=== PATIENT | female | born 1955 | race Caucasian/White ===

== ENCOUNTER 2019-10-21 21:05 | Inpatient (IN) | payer BC, SELFPAY ==
--- NOTE | ~2019-10-21 | XR_ITS ---
EXAMINATION: XR chest 2V DATE: 10/22/2019 15:55 INDICATION: Pneumonia. Hypoxia. TECHNIQUE: PA and lateral views of the chest were obtained. COMPARISON: Chest radiograph dated 10/21/2019 FINDINGS: Persistent consolidation in the posterior segment of the right upper lobe consistent with pneumonia. Unchanged bandlike discoid atelectasis in the left midlung zone. Resolution of the prior increased in terstitial opacities at the bilateral lower lung zones which likely represent mild pulmonary edema. N ew small left pleural effusion with mild left basilar atelectasis versus less likely pneumonia. No pn eumothorax. The cardiomediastinal silhouette is normal. Mild thoracic spondylosis. IMPRESSION: 1. Right upper lobe pneumonia. 2. Small left pleural effusion with associated left basilar atelectasis versus less likely pneumonia. Reviewed, dictated and finalized at location A.
--- NOTE | ~2019-10-21 | XR_ITS ---
EXAMINATION: XR chest 1V portable DATE: 10/21/2019 21:59 INDICATION: Shortness of breath. TECHNIQUE: frontal view of the chest was obtained. COMPARISON: Chest radiograph dated 05/20/2011 FINDINGS: Airspace opacities in the right upper lobe without significant volume loss which is concerning for pn eumonia. Linear discoid atelectasis in the left midlung zone. Mild streaky opacities at the left lung base could represent additional atelectasis or pneumonia. No pleural effusion or pneumothorax. The c ardiomediastinal silhouette is normal. Visualized bones and soft tissues are unremarkable. IMPRESSION: 1. Right upper lobe opacities consistent with pneumonia. 2. Mild left basilar opacities, equivocal for atelectasis versus additional pneumonia. Reviewed, dictated and finalized at location A. IMPRESSION: 1. Right upper lobe opacities consistent with pneumonia. 2. Mild left basilar opacities, equivocal for atelectasis versus additional pne umonia.
--- NOTE | 2019-10-21 21:12 | ECG_ITS ---
Measurements Intervals [place] Rate: 102 P: 71 UT: 144 QRS: -17 QRSD: 79 T: 53 QT: 261 QTc: 341 Interpretive Statements SINUS TACHYCARDIA DELAYED PRECORDIAL R/S TRANSITION NONSPECIFIC T-WAVE ABNORMALITY- INFERIOR LEADS BASELINE ARTIFACT- I, II, III, AVR, AVL, AVF, V1-V6 ABNORMAL ECG Electronically Signed On 10-22-2019 6:58:10 CDT by Azeem Lang D.O.
--- NOTE | 2019-10-21 21:12 | ED.SOB ---
HPI - SOB/Dyspnea General Chief Complaint: Shortness of Breath/Dyspnea Stated Complaint: sob, fever cough Time Seen by Provider: 10/21/19 21:12 Source: patient and EMS Mode of arrival: EMS Limitations: no limitations History of Present Illness HPI Narrative: Patient is a 64-year-old female who presents for evaluation of myalgias, fever and shortness of breath. Patient reports onset of symptoms that began today and have worsened throughout the day. She reports myalgias, dyspnea and difficulty breathing. Patient denies any chest pain, abdominal pain, nausea or vomiting. No recent rhinorrhea or sore throat. Patient reports she travels intermittently to visit family in [place], occasionally will stop at rest stops, otherwise denies any other travel. No recent sick contacts. No recent sick COVID patients that the patient has been around to her knowledge. Patient has a history of COPD, states this feels different than her typical COPD exacerbations. Related Data Allergies Allergy/AdvReac Type Severity Reaction Status Date / Time Contrast Media Allergy Unknown RASH TO CT Uncoded 04/09/12 14:55 SCAN DYE UNKNOWN ANTIBIOTIC Allergy Uncoded 04/08/12 19:26 Review of Systems Review of Systems: Narrative: CONSTITUTIONAL: Reports fever and chills EYES: Denies visual changes, redness, or discharge. ENT: Denies rhinorrhea, congestion, sore throat, or otalgia. CARDIOVASCULAR: Denies chest pain, palpitations, or edema. RESPIRATORY: Reports cough and shortness of breath GASTROINTESTINAL: Denies abdominal pain, nausea, vomiting, or diarrhea. GENITOURINARY: Denies dysuria or hematuria. SKIN: Denies rash or itching. MUSCULOSKELETAL: Denies back pain, joint pain, reports myalgias NEUROLOGIC: Denies headache, numbness, or weakness. FORMERLY [facility] Past Medical History Medical History (Updated 10/21/19 @ 23:03 by Madelaine Byrne MD) Appendicitis COPD (chronic obstructive pulmonary disease) Surgical History Surgical History (Updated 10/21/19 @ 21:33 by Madelaine Byrne MD) History of appendectomy Previous section Family History Family History (Updated 12/03/15 @ 23:19 by DOCTOR UNKNOWN) Father Family history of malignant neoplasm Mother Family history of diabetes mellitus in first degree relative Family history of coronary artery disease Family history of malignant neoplasm of breast in first degree relative Social History Social History (Updated 10/21/19 @ 21:33 by Madelaine Byrne MD) Smoking status: Current every day smoker Tobacco type: cigarettes Alcohol intake: never Substance use: never Gender identity (if verbalized by the patient): Female Exam Narrative: Exam Narrative: GENERAL: Awake, alert, conversant, ill-appearing HEAD: Normocephalic, atraumatic. EYES: PERRLA and EOMI. ENT: Nares clear, no rhinorrhea or epistaxis. Mucous membranes dry NECK: Supple. CHEST: Tachypnea, borderline hypoxemia, mild use of abdominal accessory muscles to breathe, moderate respiratory distress, mild expiratory wheezing bilaterally HEART: Tachycardic rate, sinus rhythm ABDOMEN:Non distended, non tender EXTREMITIES: Normal range of motion. No edema. SKIN: Warm, dry, no rash. NEURO:No focal deficits. Alert and oriented x3 Course Vital Signs Vital signs: Vital Signs Temperature 38.7 C H 10/21/19 21:14 Pulse Rate 106 H 10/21/19 21:14 Respiratory Rate 25 H 10/21/19 21:14 Blood Pressure 113/73 10/21/19 21:14 Pulse Oximetry 91 10/21/19 21:14 Temperature 37.7 C H 10/21/19 22:38 Pulse Rate 100 10/21/19 22:38 Respiratory Rate 22 H 10/21/19 22:38 Blood Pressure 119/77 10/21/19 22:38 Pulse Oximetry 94 10/21/19 22:38 MDM - SOB/Dyspnea MDM Narrative Medical decision making narrative: Patient presented for evaluation of myalgias, found to have fever, tachycardia, also reporting shortness of breath. Patient does not appear to be in full on COPD exacerbation, moderate respiratory distr
[2019-10-21 21:14] VITALS: BP 113/73; PULSE 106; RESP 25; TEMP 38.7; O2SAT 91
--- NOTE | 2019-10-21 21:20 | PC.NURSE ---
pt placed on 2 L o2 at this time.
[2019-10-21] MEDS: SODIUM CHLORIDE 0.9% IV 1,000 ML 999 ML IV CONT ×2 (21:24→22:38)
[2019-10-21 21:30] VITALS: O2SAT 94
[2019-10-21 21:30] LABS: Basophils Absolute Auto 0.1 K/mm3 (0.0-0.1); Basophils Percent Auto 0.4 % (0.2-1.2); Hemoglobin 14.7 g/dL (12.0-15.0); Immature Granulocyte Absolute 0.14 K/mm3 (0.00-0.031); Immature Granulocyte Percent A 0.9 % (0-0.5); Mean Corpuscular HGB Conc 32.7 g/dl (32-36); Mean Corpuscular Hemoglobin 32.8 pg (26-34); Mean Corpuscular Volume 100.4 fl (80-100); Mean Platelet Volume 9.8 fl (7.4-10.4); Monocytes Absolute Auto 0.8 K/mm3 (0.1-0.6); Monocytes Percent Auto 5.2 % (2.6-8.5); Neutrophils Absolute Auto 13.8 K/mm3 (1.3-6.7); Neutrophils Percent Auto 85.5 % (45.5-73.1); Platelet Count Result 200 k/mm3 (150-375); Red Blood Count 4.48 M/mm3 (4.2-5.4); Red Cell Distribution Width 14.1 % (11.5-14.5); White Blood Count 16.2 K/mm3 (4.5-10.0)
[2019-10-21 21:42] LABS: Prothrombin Time 12.8 Seconds (11.1-14.7)
[2019-10-21 21:43] LABS: Partial Thromboplastin Time 25.5 SECONDS (22.3-36.8)
[2019-10-21 21:45] LABS: Alveolar/Arterial O2 Gradient 57.6 mmHg; Base Excess ABG 0.7 mEq/l (+/-2.0); Fractional Inspired Oxygen 21 %; HCO3 ABG 24.5 mEq/l (22.0-26.0); Oxyhemoglobin 84.8 % THb (90.0-100.0); PCO2 ABG 36.7 mmHg (35.0-45.0); Total Hemoglobin 14.3 g/dL (12.0-18.0); pH ABG 7.442 (7.350-7.450)
[2019-10-21 21:45] LABS: Lactic Acid Reflex 3.7 mmol/L (0.7-2.1)
[2019-10-21 21:47] LABS: Oxygen Saturation ABG 85.7 % (95.0-100.0); PO2 ABG 48.2 mmHg (80.0-100.0); Site Drawn RIGHT RADIAL
[2019-10-21 21:47] LABS: Albumin Level 4.2 g/dL (3.5-5.1); Alkaline Phosphatase 71 U/L (38-126); Aspartate Amino Transferase 32 U/L (14-36); Bilirubin,Total 1.4 mg/dL (0.2-1.3); Blood Urea Nitrogen 14 mg/dL (7-17); Calcium 8.5 mg/dL (8.4-10.2); Carbon Dioxide 24 mmol/L (22-30); Chloride 100 mmol/L (98-107); Estimated Glomerular Filt Rate > 60; Glucose 124 mg/dL (65-105); Lactate Dehydrogenase 366 U/L (313-618); Potassium 3.6 mmol/L (3.4-5.0); Sodium 133 mmol/L (137-145)
[2019-10-21 21:48] VITALS: BP 135/83; PULSE 104; RESP 33; O2SAT 92
[2019-10-21 21:48] LABS: Device ROOM AIR; Modified Allen's Test Pass
--- NOTE | 2019-10-21 21:55 | PC.NURSE ---
unable to find med list in patients purse at this time. pt unable to recall medications that she takes daily.
[2019-10-21 21:56] LABS: NT Pro B Type Natriuretic Pept 913 PG/ML (5-100); Troponin I < 0.012 ng/mL (0.000-0.034)
[2019-10-21] MEDS: ALBUTEROL SULFATE (*SP) INHALER 1 PUFF (21:59)
[2019-10-21 22:10] LABS: Alanine Aminotransferase 24 U/L (4-35)
[2019-10-21] MEDS: MAGNESIUM SULF 2 GM/WATER 50ML 2 GM/50 ML BAG IVPB (22:32)
[2019-10-21 22:38] VITALS: BP 119/77; PULSE 100; RESP 22; TEMP 37.7; O2SAT 94
[2019-10-21 23:51] VITALS: BP 110/74; PULSE 101; RESP 20; TEMP 37.6; O2SAT 97
[2019-10-22] VITALS (11 sets, daily range): BP systolic 90–109; BP diastolic 55–80; PULSE 85–99; RESP 16–26; TEMP 36.6–37.8; O2SAT 90–99; BMI 18.6
[2019-10-22 00:28] LABS: Reflex Lactic Acid Yes or No Add Lactic
[2019-10-22 01:03] LABS: Lactic Acid 3.5 mmol/L (0.7-2.1)
[2019-10-22] MEDS: ACETAMINOPHEN 325 MG TABLET 650 MG PO (01:21)
--- NOTE | 2019-10-22 05:14 | PM.IMHP ---
H&P: HPI History of Present Illness Chief complaint: Short of breath, fever, cough Narrative: Date and time of patient contact: 10/22/2019 Anirudh Daugherty is a 64 year old female with a past medical history of COPD and continued tobacco use who presented to the ER with 1 day of fever cough and shortness of breath. Her symptoms have been accompanied by myalgias. She reported that her daughter made her come into the hospital because she had slept ?too much? on the . she denies any chest pain, orthopnea or lower extremity swelling. She has been traveling to visit family in [place]. She denies any recent ill contacts or known COVID-19 exposure. She reports that she currently feels worse than her usual COPD exacerbation. She is having some pleuritic chest pain. She reports that the pain is moderate in nature when it occurs. She reports feeling better now than she did when she came into the ER. She does not usually use oxygen at home but has had some hypoxia requiring oxygen administration. She denies any nausea or vomiting. She reports that her cough is productive but she has not looked at the color of her sputum. She reports that her weight has been stable. Her appetite has been decreased for the last 24 hours. She reports occasional urinary incontinence with coughing but denies any dysuria or hematuria. She has been having normal bowel movements hematochezia or melena. Review of Systems Review of Systems: Narrative: 12 systems were reviewed with pertinent positives and negatives per HPI. Except as documented in the HPI, all other systems were reviewed and are negative. FORMERLY [facility] Past Medical History Medical History (Updated 10/22/19 @ 05:29 by Padma Mckeon DO) COPD (chronic obstructive pulmonary disease) Gastric ulcer Osteoporosis Surgical History Surgical History (Updated 10/22/19 @ 07:21 by Padma Mckeon DO) History of appendectomy Open procedure due to ruptured appendix April 2012 History of carpal tunnel surgery of right wrist History of oophorectomy, unilateral Right oophorectomy due to dermoid cyst performed at the same time as the patient's open appendectomy April 2012 Previous section Family History Family History Father Diabetes mellitus Cancer Mother Breast cancer Diabetes mellitus Heart disease Sibling Legally blind Diabetes mellitus Sibling Diabetes mellitus Social History Social History (Updated 10/22/19 @ 07:24 by Padma Mckeon, DO) Social History: The patient has smoked up to 3 packs of cigarettes per day for 55 years. She started smoking when she was 9 years old. She has cut down to 1 pack of cigarettes per day for the last 1.5 years. She rarely drinks alcohol and only in moderation. She denies any illicit substance use. 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 She lives with her daughter and her daughter's boyfriend. Code status: Full code Smoking packs per day: 1 Smoking cigarettes per day: 20.0 Years smoked: 55 Smoking pack-years: 55.00 Smoking status: Current every day smoker Tobacco type: cigarettes Alcohol intake: never Substance use: never Gender identity (if verbalized by the patient): Female Spiritual care concerns: No Meds Home Medications and Allergies Home Medications Medication Instructions Recorded Confirmed Type albuterol sulfate 2 puff INHALATION QID PRN 10/22/19 10/22/19 History alendronate [Fosamax] 70 mg PO WEEKLY 10/22/19 10/22/19 History fluticasone propion-salmeterol 1 inh INHALATION Q12H 10/22/19 10/22/19 History [Advair Diskus] Allergies Allergy/AdvReac Type Severity Reaction Status Date / Time Contrast Media Allergy Unknown RASH TO CT Uncoded 04/09/12 14:55 SCAN DYE UNKNOWN ANTIBIOTIC Allergy Uncoded 04/08/12 19:26 Vital Signs Vital Signs - 24 hr 10/21/19 21:14 10/21/19 21:30 10/21/19 21:48 Tem
[2019-10-22 06:38] LABS: Hematocrit 40.4 % (37.0-47.0); Hemoglobin 13.2 g/dL (12.0-15.0); Mean Corpuscular HGB Conc 32.7 g/dl (32-36); Mean Corpuscular Hemoglobin 32.8 pg (26-34); Mean Corpuscular Volume 100.2 fl (80-100); Mean Platelet Volume 9.7 fl (7.4-10.4); Platelet Count Result 190 k/mm3 (150-375); Red Blood Count 4.03 M/mm3 (4.2-5.4); Red Cell Distribution Width 14.2 % (11.5-14.5)
[2019-10-22 06:49] LABS: Blood Urea Nitrogen 13 mg/dL (7-17); Carbon Dioxide 23 mmol/L (22-30); Chloride 104 mmol/L (98-107); Estimated CRCL calculation 84 ml/min; Estimated Glomerular Filt Rate > 60; Glucose 119 mg/dL (65-105); Potassium 3.3 mmol/L (3.4-5.0); Sodium 132 mmol/L (137-145)
[2019-10-22 07:12] LABS: Band Neutrophils Percent 9 % (0-6); Lymphocytes Absolute Manual 2.52 K/mm3 (1.1-4.5); Monocytes Absolute Manual 0.28 K/mm3 (0.1-0.90); Monocytes Percent Manual 2 % (3-9); Neutrophils Percent Manual 71 % (46-73); Platelet Estimate Adequate (Adequate); Total Cells Counted 100
[2019-10-22] MEDS: POTASSIUM CHLORIDE 20 MEQ TABLET 40 MEQ PO (07:41)
[2019-10-22] MEDS: SODIUM CHLORIDE 0.9% IV 1,000 ML 999 ML IV CONT (07:42)
[2019-10-22] MEDS: ENOXAPARIN 40 MG/0.4 ML SYRINGE SUB-Q (07:42)
[2019-10-22 08:09] LABS: Add Urine Microscopic? YES; Appearance Urine Clear (Clear); Bacteria Urine Trace /hpf; Bilirubin Urine Negative (Negative); Blood Urine 1+ (Negative); Color Urine Yellow (Yellow); Glucose Urine UA Negative (Negative); Ketones Urine Negative (Negative); Leukocyte Esterase Ur Negative LEU/UL (Negative); Nitrate Urine Negative (Negative); Protein Urine Negative (Negative); RBC Urine 0-2 /hpf (0-2); Specific Grav Ur 1.014 (1.001-1.035); Squamous Epithelial Cell Urine Few /hpf (Few); Urobilinogen Urine Negative mg/dL (<2.0); WBC Urine 0-3 /hpf
[2019-10-22] MEDS: FLUTICASONE/SALMETEROL 115-21 MCG INHALER 1 PUFF INHALATION ×2 (08:57→19:45)
[2019-10-22] MEDS: ALBUTEROL SULFATE (*SP) AEROSOL 1 PUFF 6 PUFF INHALATION ×4 (08:57→19:45)
[2019-10-22 09:02] LABS: Lactic Acid 1.7 mmol/L (0.7-2.1)
[2019-10-22] MEDS: IBUPROFEN 400 MG TABLET PO ×2 (12:19→17:55)
[2019-10-22 13:04] LABS: SARS-CoV-2 RNA PCR Negative
--- NOTE | 2019-10-22 13:16 | PC.NURSE ---
Notified Eliazar BROWN of patient negative COVID. No new orders were obtained.
--- NOTE | 2019-10-22 15:39 | PM.IMPN ---
Progress Note: A&P Assessment and Plan (1) Severe sepsis: Code(s): A41.9 - Sepsis, unspecified organism; R65.20 - Severe sepsis without septic shock Status: Acute Assessment and Plan: With fever, tachycardia, tachypnea, and leukocytosis with lactic acidosis (resolved with IVF). PNA likely source; bacterial vs viral. Blood cultures are pending. The patient received appropriate fluid resuscitation in the ER. BP is still low, but possibly where patient normally runs Continue empiric antibiotic therapy with Rocephin and azithromycin. Monitor BP with low pressures during stay thus far Encouraged PO intake Monitor improvement (2) Community acquired pneumonia: Qualifiers: Laterality: right Lung location: middle lobe of lung Qualified Code(s): J18.9 - Pneumonia, unspecified organism Code(s): J18.9 - Pneumonia, unspecified organism Status: Acute Assessment and Plan: As evident on CXR and history/exam, leukocytosis, VS. Bacterial vs viral; covid testing negative Continue empiric antibiotic therapy with Rocephin and azithromycin. Will test for urine Legionella, mycoplasma and pneumococcal antigen. Sputum cultures to be collected Monitor (3) Acute respiratory failure with hypoxia: Code(s): J96.01 - Acute respiratory failure with hypoxia Status: Acute Assessment and Plan: Requiring 3L O2 with sats at 94% this afternoon. Not normally on O2 at home, but apparently was discussing with her PCP at one point to be set up with O2. Likely secondary to PNA vs COPD or combination of both Wean O2 as tolerated to acheive sats 88-92% Monitor (4) COPD with acute lower respiratory infection: Code(s): J44.0 - Chronic obstructive pulmonary disease with (acute) lower respiratory infection Status: Acute Assessment and Plan: The patient has been placed on scheduled albuterol inhalers and Spiriva each a.m.. Will continue the patient's home Advair. Wean oxygen as tolerated to maintain oxygen saturations 88-92% Subjective Date/time seen: 10/22/19 15:39 Interval history: Patient is a 64 yo F with history of COPD and current smoker who is here for treatment for CAP and acute respiratory failure with hypoxia. Patient states she is feeling better this afternoon; she feels less SOB and her cough has improved since this morning. She has mild chest wall discomfort from coughing so much, but this has also improved. She had a headache this morning which has improved. She also complains of b/l calf pain today. Had a episode of dry heave this morning, but no vomiting; this has since resolved. No other complaints at the moment. Denies current subjective f/c/s, current headache, dizziness, lightheadedness, changes in v/h, palpitations, current n/v/d/c, abd pain, changes in BMs, dysuria, hematuria, cloudy urine, calf pain/swelling. Review of Systems Review of Systems: All systems reviewed & are unremarkable except as noted in HPI and below Exam Narrative: Exam Narrative: Patient is lying supine in bed at time of visit Const: General: cooperative, comfortable, no acute distress, well developed, alert, ill appearing acutely and chronically and tired appearing Nutritional Appearance: thin Orientation/consciousness: patient oriented x3 HENMT: Head: normocephalic and atraumatic General nose exam: Normal nares present (NC noted; 3 L O2) Face and sinus: face symmetric Mouth: Yes moist mucous membranes Throat: posterior oropharynx normal Eyes: General: appearance normal, both eyes and all related structures EOM: EOMs intact bilaterally Neck: Neck: trachea midline and supple Resp: Effort & Inspection: normal respiratory effort Auscultation: rhonchi lower bilaterally (predominantly left) and wheezes expiratory wheezes (scattered)
[2019-10-23] VITALS (11 sets, daily range): BP systolic 101–118; BP diastolic 50–71; PULSE 67–99; RESP 16–26; TEMP 36.4–37.1; O2SAT 92–97
--- NOTE | 2019-10-23 | ECHO_ITS ---
Patient Info Name: Anirudh Daugherty Age: 64 years : 1955 Gender: Female Ht: 68 in Wt: 122 lbs BSA: 1.62 m2 HR: 92 bpm BP: 143 / 90 mmHg Technical Quality: Good Exam Date: 10/23/2019 11:26 AM Exam Location: [facility] Patient Status: Inpatient Admit Date: 10/21/2019 Staff Ordering Physician: Eliazar Feldman PA-C Hand Outside Cutter: Cam Rodriguez RDCS, RT Attending Provider: Eliazar Feldman PA-C Referring Physician: Gaston HARRISON; Exam Type: CA echo doppler color flow Study Info Indications R06.02 - Shortness of breath Complete two-dimensional, color flow and Doppler transthoracic echocardiogram is performed. Summary 1. Left ventricular chamber dimension is normal. 2. Left ventricular systolic function is normal, estimated at 60-65%. 3. The left ventricular diastolic function is grade I diastolic dysfunction. 4. E/e' 7 is not elevated. 5. There is mild aortic valve sclerosis. 6. There is trace tricuspid valve regurgitation. 7. No pulmonary hypertension, estimated pulmonary arterial systolic pressure is 32 mmHg. Left Ventricle E/e' 7 is not elevated. Left ventricular chamber dimension is normal. Left ventricular systolic function is normal, estimated at 60-65%. The left ventricular diastolic function is grade I diastolic dysfunction. Right Ventricle Right ventricular systolic function is normal based on TAPSE of 2.3 cm. Right ventricular chamber dimension is not well visualized. Left Atria Left atrial chamber dimension is normal. Right Atria Right atrial chamber dimension is normal. Aortic Valve The aortic valve is trileaflet. There is mild aortic valve sclerosis. There is no aortic valve stenosis. There is no aortic valve regurgitation. Pulmonic Valve There is no pulmonic regurgitation. Mitral Valve There is no mitral valve stenosis. There is no mitral valve regurgitation. Tricuspid Valve There is trace tricuspid valve regurgitation. No pulmonary hypertension, estimated pulmonary arterial systolic pressure is 32 mmHg. Pericardium/Pleural There is no pericardial effusion. Inferior Vena Cava Normal inferior vena cava with >50% collapse upon inspiration consistent with normal right atrial pressure, 5 mmHg. Aorta The aortic root size at the sinus of Valsalva is normal. Left Ventricular Outflow Tract Name Value Normal LVOT 2D LVOT Diameter 2.0 cm LVOT Doppler LVOT Peak Gradient 5 mmHg LVOT Mean Gradient 3 mmHg LVOT VTI 19 cm LVOT VTI/AV VTI Ratio 0.8 LVOT Stroke Volume 58 ml LVOT CO 5.1 l/min LVOT CI 3.2 l/min/m2 Mitral Valve Name Value Normal MV Doppler MV Decel [place] 443
[2019-10-23] MEDS: IBUPROFEN 400 MG TABLET PO ×3 (01:06→19:03)
[2019-10-23 06:42] LABS: Basophils Percent Auto 0.4 % (0.2-1.2); Eosinophils Absolute Auto 0.1 K/mm3 (0-0.3); Eosinophils Percent Auto 0.5 % (0-4.4); Hematocrit 38.4 % (37.0-47.0); Hemoglobin 12.7 g/dL (12.0-15.0); Immature Granulocyte Absolute 0.08 K/mm3 (0.00-0.031); Immature Granulocyte Percent A 0.7 % (0-0.5); Lymphocytes Percent Auto 15.9 % (18.3-44.2); Mean Corpuscular HGB Conc 33.1 g/dl (32-36); Mean Corpuscular Hemoglobin 33.2 pg (26-34); Mean Corpuscular Volume 100.3 fl (80-100); Mean Platelet Volume 10.1 fl (7.4-10.4); Monocytes Absolute Auto 0.4 K/mm3 (0.1-0.6); Monocytes Percent Auto 3.5 % (2.6-8.5); Neutrophils Absolute Auto 8.9 K/mm3 (1.3-6.7); Platelet Count Result 182 k/mm3 (150-375); Red Blood Count 3.83 M/mm3 (4.2-5.4); Red Cell Distribution Width 14.5 % (11.5-14.5); White Blood Count 11.3 K/mm3 (4.5-10.0)
[2019-10-23 06:49] LABS: Blood Urea Nitrogen 9 mg/dL (7-17); Calcium 8.5 mg/dL (8.4-10.2); Carbon Dioxide 24 mmol/L (22-30); Chloride 108 mmol/L (98-107); Estimated CRCL calculation 84 ml/min; Estimated Glomerular Filt Rate > 60; Glucose 105 mg/dL (65-105); Magnesium 1.9 mg/dL (1.6-2.3); Potassium 3.8 mmol/L (3.4-5.0); Sodium 136 mmol/L (137-145)
[2019-10-23] MEDS: FLUTICASONE/SALMETEROL 115-21 MCG INHALER 1 PUFF INHALATION ×2 (07:51→20:28)
[2019-10-23] MEDS: ALBUTEROL SULFATE (*SP) AEROSOL 1 PUFF 6 PUFF INHALATION (07:51)
[2019-10-23] MEDS: ENOXAPARIN 40 MG/0.4 ML SYRINGE SUB-Q (09:46)
--- NOTE | 2019-10-23 10:31 | PM.IMPN ---
Progress Note: A&P Assessment and Plan (1) Severe sepsis: Code(s): A41.9 - Sepsis, unspecified organism; R65.20 - Severe sepsis without septic shock Status: Acute Assessment and Plan: With fever, tachycardia, tachypnea, and leukocytosis with lactic acidosis (resolved with IVF). Now appears to have bacteremia with gram postive cocci in clusters in aerobic/anaerobic bottles in one and aerobic only in the other. PNA likely source. The patient received appropriate fluid resuscitation in the ER. BP is still low, but improved; possibly where her BP is normally. Sputum cultures pending Continue empiric antibiotic therapy with Rocephin and azithromycin; vanc also added by the sem manager given positive blood cultures ID consulted for further input; appreciate recommendations Will add Mucinex to facilitate sputum production Echo to be performed today Encouraged PO intake Monitor improvement (2) Community acquired pneumonia: Qualifiers: Laterality: right Lung location: middle lobe of lung Qualified Code(s): J18.9 - Pneumonia, unspecified organism Code(s): J18.9 - Pneumonia, unspecified organism Status: Acute Assessment and Plan: As evident on CXR and history/exam, leukocytosis, VS. Likely Bacterial. Covid testing negative Continue empiric antibiotic therapy with vanc, Rocephin and azithromycin. Further rec from ID much appreciated given positive blood cultures Will test for urine Legionella, mycoplasma, and pneumococcal antigen. Sputum cultures pending Monitor (3) Acute respiratory failure with hypoxia: Code(s): J96.01 - Acute respiratory failure with hypoxia Status: Acute Assessment and Plan: Requiring 3L O2 with sats at 93% this morning. Not normally on O2 at home, but apparently was discussing with her PCP at one point to be set up with O2. Likely secondary to PNA vs COPD or combination of both Wean O2 as tolerated to acheive sats 88-92% Monitor (4) COPD with acute lower respiratory infection: Code(s): J44.0 - Chronic obstructive pulmonary disease with (acute) lower respiratory infection Status: Acute Assessment and Plan: The patient has been placed on scheduled albuterol inhalers and Spiriva each a.m.. Will continue the patient's home Advair. Wean oxygen as tolerated to maintain oxygen saturations 88-92% Subjective Date/time seen: 10/23/19 10:31 Interval history: Patient is a 64 yo F with history of COPD and current smoker who is here for treatment for CAP and acute respiratory failure with hypoxia. Patient states she is feeling better today; SOB and cough have improved some since yesterday. She feels less tired. Still has mild chest wall discomfort from coughing so much, but this has also improved. She has a headache. She also complains of b/l calf pain again today. No other complaints at the moment. Tolerating her diet well so far. Denies current subjective f/c/s, dizziness, lightheadedness, changes in v/h, palpitations, n/v/d/c, abd pain, changes in BMs, dysuria, hematuria, cloudy urine, swelling. Review of Systems Review of Systems: All systems reviewed & are unremarkable except as noted in HPI and below Exam Narrative: Exam Narrative: Patient is lying supine in bed with head slightly raised at time of visit Const: General: cooperative, comfortable, no acute distress, well developed, alert, ill appearing acutely and chronically and tired appearing Nutritional Appearance: thin Orientation/consciousness: patient oriented x3 HENMT: Head: normocephalic and atraumatic General nose exam: Normal nares present (NC noted; 3 L O2) Face and sinus: face symmetric Mouth: Yes moist mucous membranes Throat: posterior oropharynx normal Eyes: General: appearance normal, both eyes and all related
--- NOTE | 2019-10-23 11:58 | WPDINFPN2 ---
Progress Note: A&P Assessment and Plan (1) Community acquired pneumonia: Qualifiers: Laterality: right Lung location: middle lobe of lung Qualified Code(s): J18.9 - Pneumonia, unspecified organism Code(s): J18.9 - Pneumonia, unspecified organism Status: Acute Assessment and Plan: 1. CAP 2. Bacteremia, I doubt true infection though cannot exclude FLOYD as a cause of #1 3. COPD and tobacco REC Ctx and azithro #3, f/u micro, po therapy 10/24 if acceptable progress. Subjective Date/time seen: 10/23/19 11:58 Objective Data Vital Signs Vital Signs: Vital Signs - 24 hr 10/22/19 14:00 10/22/19 18:00 10/22/19 19:51 Temperature 37.2 C 37.3 C Pulse Rate 92 96 92 Respiratory Rate 26 H 20 24 H Blood Pressure 109/71 105/77 Pulse Oximetry 94 92 10/22/19 22:00 10/23/19 02:00 10/23/19 06:00 Temperature 36.6 C 36.4 C L 37.0 C Pulse Rate 87 84 84 Respiratory Rate 18 22 H 20 Blood Pressure 102/68 101/69 101/62 Pulse Oximetry 96 94 96 10/23/19 07:52 10/23/19 10:21 Temperature 36.8 C Pulse Rate 80 97 Respiratory Rate 22 H 22 H Blood Pressure 108/71 Pulse Oximetry 92 93 Intake/Output Intake/Output: Intake & Output 10/20/19 10/21/19 10/22/19 10/23/19 23:59 23:59 23:59 23:59 Intake Total 2350 2820 890 Output Total 1999 600 Balance 2350 820 290 Meds/Results Medications: Active Medications Generic Name Dose Route Start Last Admin Trade Name Freq PRN Reason Stop Dose Admin Albuterol 2 puff 10/23/19 12:00 Proventil Hfa INHALATION QIDRT [facility] Enoxaparin Sodium 40 mg 10/22/19 09:00 10/23/19 09:46 Lovenox SUB-Q 40 mg DAILY NORAH Administration Guaifenesin 600 mg 10/23/19 10:45 Mucinex 12 Hr Tab PO Q12HR NORAH Azithromycin 500 mg in 250 mls @ 250 mls/hr 10/22/19 22:00 10/22/19 22:03 Zithromax IVPB Infused Q24H NORAH Infusion Ceftriaxone Sodium/Dextrose 1 gm in 50 mls @ 100 mls/hr 10/22/19 21:00 10/22/19 20:53 Rocephin 1 Gm/D5w 50 Ml IVPB Infused Q24H NORAH Infusion Ibuprofen 400 mg 10/22/19 17:15 10/23/19 09:45 Motrin PO 400 mg Q6H PRN Administration Pain Rated 1-3, fever, CUEVAS Fluticasone/Salmeterol 1 puff 10/22/19 08:00 10/23/19 07:51 Advair Hfa 115-21 Mcg Inhaler (*Sp) INHALATION 1 puff Q12HRT NORAH Administration Tiotropium Van 1 cap 10/22/19 09:00 10/23/19 07:52 Spiriva INHALATION 1 cap QAM NORAH Administration Radiology Results: ITS Impressions Chest X-Ray 10/22/19 16:36 IMPRESSION: 1. Right upper lobe pneumonia. 2. Small left pleural effusion with associated left basilar atelectasis versus less likely pneumonia. Labs Labs: Laboratory Results - last 24 hr 10/21/19 10/23/19 10/23/19 23:32 05:57 05:57 WBC 11.3 H RBC 3.83 L Hgb 12.7 Hct 38.4 MCV 100.3 H MCH 33.2 MCHC 33.1 RDW 14.5 Plt Count 182 MPV 10.1 Immature Gran % (Auto) 0.7 H Neut % (Auto) 79.0 H Lymph % (Auto) 15.9 L Real % (Auto) 3.5 Eos % (Auto) 0.5 Baso % (Auto) 0.4 Lymph # (Auto) 1.80 Real # (Auto) 0.4 Eos # (Auto) 0.1 Baso # (Auto) 0.0 Abs Immat Gran (auto) 0.08 H Absolute Neuts (auto) 8.9 H Absolute Nucleated RBC 0.0 Nucleated RBC % 0.0 Sodium 136 L Potassium 3.8 Chloride 108 H Carbon Dioxide 24 BUN 9 Creatinine 0.50 L Estim Creat Clear Calc 84 Estimated GFR > 60 Glucose 105 Calcium 8.5 Magnesium 1.9 SARS-CoV-2 RNA (RT-PCR) Negative
[2019-10-23] MEDS: ALBUTEROL SULFATE (*SP) AEROSOL 1 PUFF 2 PUFF INHALATION ×3 (12:45→20:27)
--- NOTE | 2019-10-23 13:39 | CONS_ITS ---
DATE OF CONSULTATION: 10/23/2019 REASON FOR CONSULTATION: Pneumonia and bacteremia. HISTORY OF PRESENT ILLNESS: The patient is a 64-year-old female with two-year history of COPD and long-standing tobacco. She reports receiving a pneumonia vaccination some 6 months ago. She is not on home O2 and uses albuterol p.r.n. at home only. She presented to the hospital 2 days ago with 1 day of shortness of breath, cough that was largely nonproductive and a reported temperature at home was 38.3. She had investigation here and was admitted. She is on ceftriaxone and azithromycin, day 3. Positive blood culture reported overnight and vancomycin added. She had no previous bloodstream infection, has no prosthetic devices in place of any kind. No operations in the last 6 months of any kind. No longer standing fever, chills, or sweats. She has lost some 20 pounds of weight in the last 6 months. She did have some dysphagia, some 6 months ago for about 3 weeks, but none since then. She was on oxygen here with her dyspnea improved. She did not require any surgical intervention while here. PRESENT MEDICATIONS: No immunosuppressants. ALLERGIES: UNKNOWN ANTIBIOTIC. ? She has tolerated the above therapy without difficulty. HABITS: One pack per day smoker up to 3 in the past and some 55 years overall. No illicit drug use. No alcohol. PAST MEDICAL HISTORY: In addition to the above, , oophorectomy, carpal tunnel, appendectomy, osteoporosis, PUD. FAMILY HISTORY: Not pertinent to her present illness. SOCIAL HISTORY: She lives with her daughter and son-in-law. She is . 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 REVIEW OF SYSTEMS: Allergic, immunologic, constitutional, respiratory, GI, , musculoskeletal, skin otherwise negative. She has a dog and 3 cats at home. No exposure to livestock nor wild animals. She does remember tick bite several weeks ago without sequelae. PHYSICAL EXAMINATION: GENERAL: This is a middle-aged female, appears her actual age. No acute distress. VITAL SIGNS: On arrival 38.7 and afebrile since then, 108/71, 97, 22, 93% on supplemental O2. SKIN: Single tattoo warm and dry. No rashes. She has no axillary or cervical adenopathy. EENT: The conjunctivae are normal. Pupils equal, round, and reactive to light. No paranasal sinus erythema, edema, or tenderness. OROPHARYNX: Oral mucosa normal. Teeth in good repair. NECK: No masses. No stridor. LUNGS: She has a few dry rales at the right lung base. No egophony. No fremitus. Clear to percussion. CHEST: Equal expansion. Normal AP diameter. CARDIAC: Soft S1, S2. Regular rate and rhythm. No murmurs or gallops. Pulses are 2+. ABDOMEN: Nontender, soft. No masses or organomegaly. EXTREMITIES: Without clubbing, cyanosis, or edema. No venous varicosities. LABORATORY DATA: Blood cultures 2/2 sets gram-positive cocci in clusters. Sputum from last evening, many white cells, no epithelial cells, moderate gram-positive cocci in pairs. White count originally 16.2, now 11.3, which is down, hemoglobin 12.7, platelets are 182. Differential with a moderate left shift when last performed yesterday. Prothrombin time 12.8. Blood gases 7.44, 37, 48, 25, 86% that is on room air. She has hyponatremia, which is improving. Glucose was 124, now 105, bilirubin 1.4. Other liver function tests normal. Urinalysis 1+ blood, otherwise normal. COVID was nonreactive. RADIOLOGY: I personally reviewed her chest x-ray. She has an inferior right upper lobe infiltrate without change on the two x-rays have been performed so far. Radiologist has also read a small pleural effusion. ASSESSMENT: 1. Fever, cough, leukocytosis due to community-acquired pneumonia. Gram stain would indicate streptococcal inf
[2019-10-24 02:00] VITALS: BP 104/70; PULSE 76; RESP 20; TEMP 36.9; O2SAT 98
[2019-10-24] MEDS: IBUPROFEN 400 MG TABLET PO ×2 (03:31→23:34)
[2019-10-24 06:00] VITALS: BP 103/67; PULSE 74; RESP 20; TEMP 36.3; O2SAT 93
[2019-10-24 06:24] LABS: Basophils Percent Auto 0.3 % (0.2-1.2); Eosinophils Absolute Auto 0.1 K/mm3 (0-0.3); Hematocrit 36.5 % (37.0-47.0); Hemoglobin 11.9 g/dL (12.0-15.0); Immature Granulocyte Absolute 0.05 K/mm3 (0.00-0.031); Immature Granulocyte Percent A 0.7 % (0-0.5); Lymphocytes Absolute Auto 1.67 K/mm3 (0.9-3.2); Mean Corpuscular HGB Conc 32.6 g/dl (32-36); Mean Corpuscular Hemoglobin 32.2 pg (26-34); Mean Corpuscular Volume 98.9 fl (80-100); Mean Platelet Volume 9.9 fl (7.4-10.4); Monocytes Absolute Auto 0.3 K/mm3 (0.1-0.6); Monocytes Percent Auto 4.5 % (2.6-8.5); Neutrophils Absolute Auto 5.1 K/mm3 (1.3-6.7); Neutrophils Percent Auto 70.5 % (45.5-73.1); Platelet Count Result 193 k/mm3 (150-375); Red Blood Count 3.69 M/mm3 (4.2-5.4); Red Cell Distribution Width 14.2 % (11.5-14.5); White Blood Count 7.3 K/mm3 (4.5-10.0)
[2019-10-24 06:43] LABS: Blood Urea Nitrogen 7 mg/dL (7-17); Calcium 8.4 mg/dL (8.4-10.2); Carbon Dioxide 24 mmol/L (22-30); Chloride 106 mmol/L (98-107); Estimated CRCL calculation 103 ml/min; Estimated Glomerular Filt Rate > 60; Glucose 108 mg/dL (65-105); Magnesium 1.7 mg/dL (1.6-2.3); Sodium 136 mmol/L (137-145)
[2019-10-24 06:59] LABS: Potassium 3.5 mmol/L (3.4-5.0)
[2019-10-24] MEDS: ENOXAPARIN 40 MG/0.4 ML SYRINGE SUB-Q (08:33)
[2019-10-24 08:35] VITALS: O2SAT 92
[2019-10-24] MEDS: FLUTICASONE/SALMETEROL 115-21 MCG INHALER 1 PUFF INHALATION (08:38)
[2019-10-24] MEDS: ALBUTEROL SULFATE (*SP) AEROSOL 1 PUFF 2 PUFF INHALATION (08:39)
--- NOTE | 2019-10-24 09:57 | PM.IMPN ---
Progress Note: A&P Assessment and Plan (1) Severe sepsis: Code(s): A41.9 - Sepsis, unspecified organism; R65.20 - Severe sepsis without septic shock Status: Acute Assessment and Plan: With fever, tachycardia, tachypnea, and leukocytosis with lactic acidosis (resolved with IVF), PNA likely source. Now appears to have bacteremia with gram postive cocci in clusters in aerobic/anaerobic bottles in one and aerobic only in the other. Sputum Cx shows growth of gram positive cocci in pairs. The patient received appropriate fluid resuscitation in the ER. BP is still low, but improved; possibly where her BP is normally. Echo grossly unremarkable Continue empiric antibiotic therapy with Rocephin and azithromycin per ID recommendations; likely transition to PO cefdinir and azithromycin tomorrow ID following; appreciate recommendations Will add Mucinex to facilitate sputum production Encouraged PO intake Declines PT/OT at the moment Monitor improvement (2) Community acquired pneumonia: Qualifiers: Laterality: right Lung location: middle lobe of lung Qualified Code(s): J18.9 - Pneumonia, unspecified organism Code(s): J18.9 - Pneumonia, unspecified organism Status: Acute Assessment and Plan: As evident on CXR and history/exam, leukocytosis, VS. Likely Bacterial. Covid testing negative. Sputum culture is showing growth of gram positive cocci in clusters Continue antibiotic therapy with Rocephin and azithromycin. Further rec from ID much appreciated Will test for urine Legionella, and pneumococcal antigen. Monitor (3) Bacteremia: Code(s): R78.81 - Bacteremia Status: Acute Assessment and Plan: Possibly contaminate vs possible FLOYD with lung as source ID consulted for further input; appreciate rec Currently on IV Rocephin and azithromycin; vanc is held for now Follow cultures Await further rec from ID (4) Acute respiratory failure with hypoxia: Code(s): J96.01 - Acute respiratory failure with hypoxia Status: Acute Assessment and Plan: Requiring 2L O2 with sats at 92% this morning; improvement. Not normally on O2 at home, but apparently was discussing with her PCP at one point to be set up with O2. Likely secondary to PNA vs COPD or combination of both Wean O2 as tolerated to acheive sats 88-92% Monitor (5) COPD with acute lower respiratory infection: Code(s): J44.0 - Chronic obstructive pulmonary disease with (acute) lower respiratory infection Status: Acute Assessment and Plan: The patient has been placed on scheduled albuterol inhalers and Spiriva each a.m.. Will continue the patient's home Advair. Wean oxygen as tolerated to maintain oxygen saturations 88-92% Subjective Date/time seen: 10/24/19 09:57 Interval history: Patient is a 64 yo F with history of COPD and current smoker who is here for treatment for CAP and acute respiratory failure with hypoxia. Patient states she is overall feeling better today; SOB and cough have improved again since yesterday. She feels less tired and is more active today. No headaches today. Calf pain has no resolved as well. No other complaints at the moment. Tolerating her diet well so far. Denies current subjective f/c/s, headaches today, dizziness, lightheadedness, changes in v/h, cp, palpitations, n/v/d/c, abd pain, changes in BMs, dysuria, hematuria, cloudy urine, calf pain/swelling. Review of Systems Review of Systems: All systems reviewed & are unremarkable except as noted in HPI and below Exam Narrative: Exam Narrative: Patient is lying supine in bed with head slightly raised at time of visit Const: General: cooperative, comfortable, no acute distress, well developed, alert, ill appearing acute
--- NOTE | 2019-10-24 11:14 | WPDINFPN2 ---
Progress Note: A&P Assessment and Plan (1) Community acquired pneumonia: Qualifiers: Laterality: right Lung location: middle lobe of lung Qualified Code(s): J18.9 - Pneumonia, unspecified organism Code(s): J18.9 - Pneumonia, unspecified organism Status: Acute Assessment and Plan: 1. CAP, still on O2, but improving 2. Bacteremia, I doubt true infection though cannot exclude FLOYD as a cause of #1. Clinically, this is a contaminant. 3. COPD and tobacco REC Ctx and azithro #4. If coagulase negative Staph. or Micrococcus isolated from blood, then no further treatment nor evaluation will be needed. Once she is off oxygen, can change her Rx to cefdinir 300 bid and azithro 250 daily, through 10/26. Due to her weight loss and CXR findings, I think repeat CXR as outpatient is warranted (e.g., 4 weeks from now), as underlying lung cancer remains a possibility. This f/u CXR for CAP was formerly a blanket recommendation, now is optional. Subjective Date/time seen: 10/24/19 11:14 Interval history: no subjective fever, no chills no sweats, no sputum Exam Narrative: Exam Narrative: afebrile Const: General: no acute distress Other: thin but not cachectic Eyes: General: appearance normal, both eyes and all related structures Resp: Effort & Inspection: normal respiratory effort Auscultation: clear to auscultation bilaterally Cardio: Rate: regular rate Rhythm: regular rhythm Heart sounds: no gallops and no murmurs GI: Inspection: non-distended GI Palp: Yes Soft to palpation and No Tenderness to palpation present (GI) Skin: General skin exam: normal color and no rashes or lesions noted Objective Data Vital Signs Vital Signs: Vital Signs - 24 hr 10/23/19 12:45 10/23/19 14:49 10/23/19 17:57 Temperature 36.7 C 37.1 C Pulse Rate 82 99 67 Respiratory Rate 24 H 16 18 Blood Pressure 112/70 118/50 L Pulse Oximetry 97 97 10/23/19 20:30 10/23/19 20:31 10/23/19 22:00 Temperature 36.9 C Pulse Rate 88 88 91 Respiratory Rate 26 H 22 H Blood Pressure 107/71 Pulse Oximetry 95 94 10/23/19 22:40 10/24/19 02:00 10/24/19 06:00 Temperature 36.9 C 36.3 C L Pulse Rate 76 74 Respiratory Rate 20 20 Blood Pressure 104/70 103/67 Pulse Oximetry 92 98 93 10/24/19 08:35 Temperature Pulse Rate Respiratory Rate Blood Pressure Pulse Oximetry 92 Intake/Output Intake/Output: Intake & Output 10/21/19 10/22/19 10/23/19 10/24/19 23:59 23:59 23:59 23:59 Intake Total 2350 2820 [id number] 680 Output Total 1999 1950 600 Balance 2350 381 [id number] 80 Meds/Results Medications: Active Medications Generic Name Dose Route Start Last Admin Trade Name Freq PRN Reason Stop Dose Admin Albuterol 2 puff 10/23/19 12:00 10/24/19 08:39 Proventil Hfa INHALATION 2 puff QIDRT NORAH Administration Enoxaparin Sodium 40 mg 10/22/19 09:00 10/24/19 08:33 Lovenox SUB-Q 40 mg DAILY NORAH Administration Guaifenesin 600 mg 10/23/19 10:45 10/24/19 08:33 Mucinex 12 Hr Tab PO 600 mg Q12HR NORAH Administration Azithromycin 500 mg in 250 mls @ 250 mls/hr 10/22/19 22:00 10/23/19 22:27 Zithromax IVPB Infused Q24H NORAH Infusion Ceftriaxone Sodium/Dextrose 1 gm in 50 mls @ 100 mls/hr 10/22/19 21:00 10/23/19 21:14 Rocephin 1 Gm/D5w 50 Ml IVPB Infused Q24H NORAH Infusion Ibuprofen 400 mg 10/22/19 17:15 10/24/19 03:31 Motrin PO 400 mg Q6H PRN Administration Pain Rated 1-3, fever, CUEVAS Fluticasone/Salmeterol 1 puff 10/22/19 08:00 10/24/19 08:38 Advair Hfa 115-21 Mcg Inhaler (*Sp) INHALATION 1 puff Q12HRT NORAH Administration Tiotropium [place] 1 cap 10/22/19 09:00 10/24/19 08:38 Spiriva INHALATION 1 cap QAM NORAH Administration Radiology Results: ITS Impressions Chest X-Ray 10/22/19 16:36 IMPRESSION: 1. Right upper lobe pneumonia. 2. Small left pleural effusion with associated left basilar atelectasis versus less likely pneum
[2019-10-24 14:00] VITALS: BP 113/72; PULSE 84; RESP 22; TEMP 36.7; O2SAT 98
[2019-10-24 15:34] LABS: Procalcitonin 3.96 ng/mL (<0.10)
[2019-10-24 18:57] VITALS: O2SAT 96
[2019-10-24 21:32] LABS: Pneumococcal Antigen Urine Detected (Not Detected)
[2019-10-24 22:00] VITALS: BP 144/90; PULSE 70; RESP 22; TEMP 37.1; O2SAT 93
--- NOTE | 2019-10-25 01:49 | PCRCNOTE ---
Window of time for administration has passed. See next scheduled administration.
[2019-10-25 02:00] VITALS: O2SAT 94
[2019-10-25 06:00] VITALS: BP 124/79; PULSE 66; RESP 22; TEMP 36.2; O2SAT 93
[2019-10-25 06:34] LABS: Hematocrit 38.5 % (37.0-47.0); Hemoglobin 12.5 g/dL (12.0-15.0); Mean Corpuscular HGB Conc 32.5 g/dl (32-36); Mean Corpuscular Hemoglobin 32.1 pg (26-34); Mean Platelet Volume 9.9 fl (7.4-10.4); Platelet Count Result 239 k/mm3 (150-375); Red Blood Count 3.89 M/mm3 (4.2-5.4); White Blood Count 4.7 K/mm3 (4.5-10.0)
[2019-10-25 06:45] LABS: Blood Urea Nitrogen 8 mg/dL (7-17); Calcium 8.5 mg/dL (8.4-10.2); Carbon Dioxide 26 mmol/L (22-30); Chloride 108 mmol/L (98-107); Estimated CRCL calculation 103 ml/min; Estimated Glomerular Filt Rate > 60; Glucose 103 mg/dL (65-105); Magnesium 1.9 mg/dL (1.6-2.3); Potassium 3.3 mmol/L (3.4-5.0); Sodium 137 mmol/L (137-145)
[2019-10-25] MEDS: POTASSIUM CHLORIDE 20 MEQ TABLET 40 MEQ PO (08:06)
[2019-10-25] MEDS: ENOXAPARIN 40 MG/0.4 ML SYRINGE SUB-Q (08:06)
[2019-10-25] MEDS: FLUTICASONE/SALMETEROL 115-21 MCG INHALER 1 PUFF INHALATION (08:58)
[2019-10-25 09:00] VITALS: PULSE 90; O2SAT 95
[2019-10-25 09:07] VITALS: PULSE 91; O2SAT 97
[2019-10-25 09:09] VITALS: PULSE 88; O2SAT 97
[2019-10-25] MEDS: CEFDINIR 300 MG CAPSULE PO (09:16)
[2019-10-25] MEDS: IBUPROFEN 400 MG TABLET PO (09:17)
--- NOTE | 2019-10-25 10:20 | PM.DS ---
DS: Admitting Diagnosis Admitting Diagnosis Admitting Diagnosis: Sepsis, unspecified organism DS: Discharge Diagnosis Discharge Diagnosis (1) Severe sepsis: Code(s): A41.9 - Sepsis, unspecified organism; R65.20 - Severe sepsis without septic shock Status: Acute Assessment and Plan: With fever, tachycardia, tachypnea, and leukocytosis with lactic acidosis (resolved with IVF), PNA likely source. BCx growing coag neg staph; likely contaminate. Sputum Cx shows growth of normal oropharyngeal daisy. The patient received appropriate fluid resuscitation in the ER. BP has improved overnight. Echo grossly unremarkable. ID following; appreciate recommendations Transition to PO cefdinir and azithromycin today and complete treatment through 10/26 per ID recs CXR in 4 weeks per ID recs d/c today to home Home O2 eval showed no O2 needs f/u with PCP in 1-2 weeks (2) Community acquired pneumonia: Qualifiers: Laterality: right Lung location: middle lobe of lung Qualified Code(s): J18.9 - Pneumonia, unspecified organism Code(s): J18.9 - Pneumonia, unspecified organism Status: Acute Assessment and Plan: As evident on CXR and history/exam, leukocytosis, VS. Likely Bacterial. Covid testing negative. Sputum culture is showing growth of normal oropharyngeal daisy. Pneumococcal ur antigen positive. Antibiotic therapy with cefdinir and azithromycin through 10/26 per ID recs f/u with PCP CXR in 4 weeks (3) Bacteremia: Code(s): R78.81 - Bacteremia Status: Acute Assessment and Plan: Likely contaminate with coag neg staph growth. ID consulted for further input; appreciate rec Cefdinir and azithromycin treatment course through 10/26 for CAP Follow cultures (4) Acute respiratory failure with hypoxia: Code(s): J96.01 - Acute respiratory failure with hypoxia Status: Resolved Assessment and Plan: Appears to have resolved with CAP treatment. Now on RA. Home O2 eval shows no O2 needs. Likely secondary to PNA vs COPD or combination of both F/u with PCP (5) COPD with acute lower respiratory infection: Code(s): J44.0 - Chronic obstructive pulmonary disease with (acute) lower respiratory infection Status: Acute Assessment and Plan: Continue ted medication regimen Wean oxygen as tolerated to maintain oxygen saturations 88-92% F/u with PCP for further care, home O2 needs if warranted as outpatient DS: Summary Hospital Course Reason for hospitalization: Severe sepsis/CAP Hospital Course: Patient is a 64 yo F with a past medical history of COPD and continued tobacco use who presented to the ER on 10/20 with 1 day of fever cough and shortness of breath. Her symptoms have been accompanied by myalgias. While in the ER, patient was found to be septic supported by leukocytosis, tachypnea, tachycardia, and fever with lactic acidosis and with Pneumonia as source; patient was tested for COVID in the ED as well (later found to be negative). Patient admitted under this setting. Please see H&P for further details. Presenting VS: Temp Pulse Resp BP Pulse Ox 101.7 F H 106 H 25 H 113/73 91 10/21/19 21:14 10/21/19 21:14 10/21/19 21:14 10/21/19 21:14 10/21/19 21:14 Presenting Pertinent labs: WBC 16.2k, lactic acid 3.7 (1.7 after light IVF), procalcitonin 3.96. Covid negative. Ur legionella antigen negative, Ur pneumococcal antigen positive. ABG on RA shows pO2 48.2, and O2 sat of 85.7%. CBC, coag, chemistry, ABG, chemistry, UA otherwise unremarkable Micro: Sputum culture grew normal oropharygneal daisy. BCx#1 grew coag neg staph in aerobic and anaerobic bottles; BCx#2 grew coag neg staph in aerobic and anaerobic bottles Imaging: Chest X-Ray 10/21/19 22:03 IMPRESSION: 1. Rig
[2019-10-25 14:34] LABS: Legionella pneumophila Ag Ur Not Detected (Not Detected)
== END 2019-10-25 12:30 | disposition home or self-care (01) | DRG 871 ==
LOC: ANHED 23:21 → ANH3MEDSUR 23:33
PROVIDERS: Physician Assistant; Admitting Provider Internal Medicine; Emergency Provider Emergency Medicine; PCP Nurse Practitioner Family; Visit Provider Family Medicine
DX: A41.9 Sepsis, unspecified organism (principal); J15.9 Unspecified bacterial pneumonia; J96.01 Acute respiratory failure with hypoxia; J44.0 Chronic obstructive pulmonary disease with (acute) lower respiratory infection; R65.20 Severe sepsis without septic shock; Z20.828 Contact with and (suspected) exposure to other viral communicable diseases; F17.210 Nicotine dependence, cigarettes, uncomplicated; M81.0 Age-related osteoporosis without current pathological fracture; E87.6 Hypokalemia; Z90.721 Acquired absence of ovaries, unilateral
CPT/HCPCS: 36415; 36600; 71045; 71046; 80048; 80053; 81001; 82805; 83605; 83615; 83735; 83880; 84145; 84484; 85025; 85027; 85610; 85730; 87040; 87070; 87077; 87186; 87205; 87449; 87635; 87899; 93005; 93306; 94618; 94640; 96361; 96365; 96367; 96368; 99285; A9270; C9803; J0456; J0696; J1650; J3370; J3475; J7030; U0003

== ENCOUNTER 2020-11-24 13:46 | Inpatient (IN) | payer OTHER, SELFPAY ==
[2020-11-24] VITALS (45 sets, daily range): BP systolic 93–106; BP diastolic 61–79; PULSE 91–125; RESP 18–36; TEMP 36.4–38.3; O2SAT 89–100; BMI 21.9; BMI 22.1
--- NOTE | ~2020-11-24 | CT_ITS ---
EXAMINATION: CTA chest PE protocol DATE: 11/25/2020 11:39 INDICATION: Elevated d-dimer, shortness of breath and cough TECHNIQUE: Computed tomography angiography (CTA) of the chest was performed with 100 mL Omnipaque-350 intravenous contrast timed to evaluate the pulmonary arteries. Coronal maximum intensity projection 3D-reconstructions were created by the technologist. The dose-length product (DLP) was 159.97 mGy-cm. Automated exposure control and iterative reconstruction technique were employed. COMPARISON: 05/14/2011 FINDINGS: The pulmonary arteries are well-opacified. No pulmonary embolism is identified. There is mo derate emphysema. There is near complete consolidation of the left lower lobe. Airspace opacities are present in the right middle lobe. There is no pleural effusion or pneumothorax. A small amount of in gested material is seen in the esophagus. There is mild subcarinal and left hilar lymphadenopathy, li vianey reactive. The heart size is normal. Calcified coronary artery atherosclerosis is noted. There is mild thoracic spondylosis. There are areas of fat attenuation and rim calcified fat attenuation in t he liver which could reflect prior trauma. IMPRESSION: 1. No pulmonary embolus identified. 2. Near complete opacification of the left lower lobe and airspace opacities of the right middle lobe , consistent with pneumonia Reviewed, dictated and finalized at location B. IMPRESSION: 1. No pulmonary embolus identified. 2. Near complete opacification of the left lower lobe and airspace opacities of the right middle lobe, consistent with pneumonia
--- NOTE | ~2020-11-24 | XR_ITS ---
EXAMINATION: XR chest 1V portable DATE: 11/24/2020 14:22 INDICATION: Soreness of breath, cough and fever TECHNIQUE: frontal view of the chest was obtained. COMPARISON: Chest radiograph dated 10/22/2019 FINDINGS: Mild hyperexpansion of lungs with increased lucency in the upper lung zones consistent with emphysema better appreciated on CT dated 05/14/2011. Increased airspace opacity in the left mid to lower lung zo ne with blunting at the costophrenic angle consistent with small left pleural effusion and associated left lower lobar atelectasis and/or pneumonia. Additional patchy airspace opacity in the right infra hilar region also suspicious for pneumonia. Prior opacities in the right upper lobe have resolved. No pneumothorax or right-sided pleural effusion. The cardiomediastinal silhouette is normal. IMPRESSION: 1. Small left pleural effusion. 2. Opacities in the left mid to lower and right lower lung zones concerning for pneumonia with differ ential including atelectasis. 3. Emphysema. Reviewed, dictated and finalized at location A. IMPRESSION: 1. Small left pleural effusion. 2. Opacities in the left mid to lower and right lower lung zones concerning for pneumonia with differential including atelectasis. 3. Emphysema.
--- NOTE | ~2020-11-24 | XR_ITS ---
XR chest 2V 11/29/2020 09:43 Indication: Hypoxia. Weakness. Procedure: PA and lateral views of the chest Comparison: Comparison to multiple prior studies sequentially, with oldest reviewed study dated 05/20. Findings: There is improving left lower lobe airspace disease. The lungs are hyperinflated which is c onsistent with, but not diagnostic of chronic obstructive pulmonary disease. No acute osseous abnorma lity. Impression: 1: Improving left lower lobe airspace disease, cyst with resolving pneumonia. Reviewed, dictated and finalized at location A. Impression: 1: Improving left lower lobe airspace disease, cyst with resolving pneumonia.
--- NOTE | ~2020-11-24 | US_ITS ---
EXAMINATION: US venous doppler [facility] DATE: 11/25/2020 09:30 INDICATION: Shortness of breath TECHNIQUE: Aj scale images without and with compression and Doppler images of the bilateral lower e xtremity veins were obtained. COMPARISON: None FINDINGS: The right common femoral vein, profunda femoral vein, femoral vein, popliteal vein, peroneal trunk, p osterior tibial veins, and greater saphenous vein are patent. The left common femoral vein, profunda femoral vein, femoral vein, popliteal vein, peroneal trunk, po sterior tibial veins, and greater saphenous vein are patent. IMPRESSION: 1. Patent bilateral lower extremity veins. No evidence of deep venous thrombosis. Reviewed, dictated and finalized at location B. IMPRESSION: 1. Patent bilateral lower extremity veins. No evidence of deep venous thrombosi s.
--- NOTE | 2020-11-24 14:04 | ECG_ITS ---
Measurements Intervals [place] Rate: 117 P: 72 CA: 123 QRS: -42 QRSD: 85 T: 69 QT: 305 QTc: 426 Interpretive Statements SINUS TACHYCARDIA POSSIBLE LEFT ATRIAL ENLARGEMENT LEFT AXIS DEVIATION VOLTAGE CRITERIA FOR LVH BASELINE ARTIFACT- I, II, III, AVR, AVL, AVF, V1-V6 ABNORMAL ECG Electronically Signed On 11-24-2020 15:56:59 CDT by Azeem Lang D.O.
[2020-11-24 14:16] LABS: Basophils Percent Auto 0.2 % (0.2-1.2); Eosinophils Absolute Auto 0.1 K/mm3 (0-0.3); Eosinophils Percent Auto 0.3 % (0-4.4); Hematocrit 45.6 % (37.0-47.0); Hemoglobin 15.1 g/dL (12.0-15.0); Immature Granulocyte Absolute 0.04 K/mm3 (0.00-0.031); Immature Granulocyte Percent A 0.3 % (0-0.5); Lymphocytes Absolute Auto 1.13 K/mm3 (0.9-3.2); Lymphocytes Percent Auto 7.5 % (18.3-44.2); Mean Corpuscular HGB Conc 33.1 g/dl (32-36); Mean Corpuscular Hemoglobin 32.2 pg (26-34); Mean Corpuscular Volume 97.2 fl (80-100); Mean Platelet Volume 9.9 fl (7.4-10.4); Monocytes Absolute Auto 0.5 K/mm3 (0.1-0.6); Monocytes Percent Auto 3.2 % (2.6-8.5); Neutrophils Absolute Auto 13.4 K/mm3 (1.3-6.7); Neutrophils Percent Auto 88.5 % (45.5-73.1); Platelet Count Result 227 k/mm3 (150-375); Red Blood Count 4.69 M/mm3 (4.2-5.4); Red Cell Distribution Width 13.2 % (11.5-14.5); White Blood Count 15.1 K/mm3 (4.5-10.0)
[2020-11-24 14:25] LABS: Alanine Aminotransferase 20 U/L (4-35); Albumin Level 4.1 g/dL (3.5-5.1); Alkaline Phosphatase 111 U/L (38-126); Anion Gap 10 mmol/L (8-16); Aspartate Amino Transferase 27 U/L (14-36); Blood Urea Nitrogen 23 mg/dL (7-17); Calcium 9.1 mg/dL (8.4-10.2); Carbon Dioxide 27 mmol/L (22-30); Chloride 93 mmol/L (98-107); Estimated CRCL calculation 60 ml/min; Estimated Glomerular Filt Rate > 60; Glucose 147 mg/dL (65-110); Potassium 3.3 mmol/L (3.4-5.0); Sodium 130 mmol/L (137-145)
[2020-11-24 14:36] LABS: Alveolar/Arterial O2 Gradient 177.7 mmHg; Base Excess ABG 3.8 mEq/l (+/-2.0); Fractional Inspired Oxygen 38 %; HCO3 ABG 27.9 mEq/l (22.0-26.0); Oxygen Content ABG 18.6 %vol (16.0-22.0); Oxyhemoglobin 86.4 % THb (90.0-100.0); PCO2 ABG 40.2 mmHg (35.0-45.0); PO2 FiO2 Ratio Arterial Blood 1.23 %; Total Hemoglobin 15.4 g/dL (12.0-18.0); pH ABG 7.459 (7.350-7.450)
--- NOTE | 2020-11-24 14:38 | ED.SOB ---
HPI - SOB/Dyspnea General Chief Complaint: Shortness of Breath/Dyspnea Stated Complaint: sob/vomiting Time Seen by Provider: 11/24/20 14:10 Source: patient Mode of arrival: ambulatory Limitations: no limitations History of Present Illness HPI Narrative: Patient is 65 years old white female presents with productive cough of brown sputum and shortness of breath over the last 3 weeks. Patient never been vaccinated for Covid or had Covid infection before. Patient denies any nausea, vomiting, chest pain or urinary symptoms MD elicited complaint: cough Related Data Home Medications Medication Instructions Recorded Confirmed albuterol sulfate 2 puff INHALATION QID PRN 10/22/19 10/22/19 alendronate [Fosamax] 70 mg PO WEEKLY 10/22/19 10/22/19 fluticasone propion-salmeterol 1 inh INHALATION Q12H 10/22/19 10/22/19 [Advair Diskus] bupropion HCl PO 11/24/20 fluticasone propion-salmeterol INHALATION 11/24/20 [Advair HFA] tiotropium bromide [Spiriva INHALATION 11/24/20 Respimat] Allergies Allergy/AdvReac Type Severity Reaction Status Date / Time Contrast Media Allergy Unknown RASH TO CT Uncoded 04/09/12 14:55 SCAN DYE UNKNOWN ANTIBIOTIC Allergy Unknown Uncoded 11/24/20 14:06 [facility] Past Medical History Medical History (Updated 11/24/20 @ 14:57 by Barrington Mars MD) COPD (chronic obstructive pulmonary disease) Gastric ulcer Osteoporosis Surgical History Surgical History (Updated 10/22/19 @ 07:21 by Padma Mckeon DO) History of appendectomy Open procedure due to ruptured appendix April 2012 History of carpal tunnel surgery of right wrist History of oophorectomy, unilateral Right oophorectomy due to dermoid cyst performed at the same time as the patient's open appendectomy April 2012 Previous section Family History Family History Father Diabetes mellitus Cancer Mother Breast cancer Diabetes mellitus Heart disease Sibling Legally blind Diabetes mellitus Sibling Diabetes mellitus Social History Social History (Updated 10/22/19 @ 07:24 by Padma Mckeon DO) Social History: The patient has smoked up to 3 packs of cigarettes per day for 55 years. She started smoking when she was 9 years old. She has cut down to 1 pack of cigarettes per day for the last 1.5 years. She rarely drinks alcohol and only in moderation. She denies any illicit substance use. 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 She lives with her daughter and her daughter's boyfriend. Code status: Full code Smoking packs per day: 1 Smoking cigarettes per day: 20.0 Years smoked: 55 Smoking pack-years: 55.00 Smoking status: Current every day smoker Tobacco type: cigarettes Alcohol intake: never Substance use: never Gender identity (if verbalized by the patient): Female Spiritual care concerns: No Course Vital Signs Vital signs: Vital Signs Temperature 38.3 C H 11/24/20 14:03 Pulse Rate 125 H 11/24/20 14:03 Respiratory Rate 28 H 11/24/20 14:03 Blood Pressure 101/79 11/24/20 14:03 Pulse Oximetry 89 L 11/24/20 14:03 Temperature 38.3 C H 11/24/20 14:03 Pulse Rate 116 H 11/24/20 14:04 Respiratory Rate 28 H 11/24/20 14:03 Blood Pressure 101/79 11/24/20 14:03 Pulse Oximetry 91 11/24/20 14:05 MDM - SOB/Dyspnea Lab Data Result diagrams: 11/24/20 14:08 11/24/20 14:08 Labs: Lab Results 11/24/20 11/24/20 Range/Units 14:08 14:08 WBC Pending RBC Pending Hgb Pending Hct Pending MCV Pending MCH Pending MCHC Pending RDW Pending Plt Count Pending MPV Pending Immature Gran % (Auto) Pending Neut % (Auto) Pending Lymph % (Auto) Pending [place] % (Auto) Pending Eos % (Auto) Pending Baso % (Auto) Pending Lymph # (Auto) Pending [place] # (Auto) Pending Eos # (Auto) Pending Baso #
[2020-11-24 14:39] LABS: PO2 ABG 46.8 mmHg (80.0-100.0)
[2020-11-24 14:40] LABS: Device NASAL CANNULA; Site Drawn RIGHT BRACHIAL
--- NOTE | 2020-11-24 14:46 | PC.NURSE ---
called hematology and added on a D dimer talked to Armani at [phone]
[2020-11-24] MEDS: methylPREDNISolone SOD SUCC 125 MG VIAL IV PUSH (15:05)
[2020-11-24] MEDS: SODIUM CHLORIDE 0.9% IV 1,000 ML 60 ML IV CONT (15:05)
[2020-11-24] MEDS: POTASSIUM CHLORIDE 20 MEQ TABLET 40 MEQ PO (15:13)
[2020-11-24 15:23] LABS: D Dimer 3.13 ug/mL (<0.48)
[2020-11-24] MEDS: IPRATROPIUM BR 0.02% INH SOLN 0.5 MG/2.5 ML VIAL INHALATION ×2 (15:34→18:41)
[2020-11-24] MEDS: ALBUTEROL SULFATE NEB 2.5 MG/0.5 ML INH 5 MG INHALATION ×2 (15:34→18:40)
--- NOTE | 2020-11-24 16:23 | PC.NURSE ---
Upon rounding, pt found on stretcher with mask off face, pt educated on need for bipap, mask placed back on pt, pt cooperative at this time, vss, call light in reach.
--- NOTE | 2020-11-24 17:50 | PC.NURSE ---
pt provided meal tray
--- NOTE | 2020-11-24 19:17 | ADMGEN ---
This patient, Anirudh Daugherty, was admitted to IMU Room 211-01 @ 1900. Patient oriented to hospital policies and general routines including ID bracelet, bed and alarms, visiting hours, pain management, procedures, bathroom and other care routines, personal items, smoking policy, room service/diet, and visiting hours. Information on how to activate the Rapid Response Team has been discussed. Patient are encouraged to report perceived risks to care and to ask questions if they do not understand what they are told or what they should do.
--- NOTE | 2020-11-24 20:33 | PM.IMHP ---
H&P: HPI History of Present Illness Date/Time: 11/24/20 20:33 this is a 65-year-old female patient who has never been vaccinated for COVID-19. The patient has a brown productive cough and she had shortness of breath over the last 3 weeks. Chest x-ray was read as small left pleural effusion. Opacities in the left mid to lower and right lower lung zones concerning for pneumonia with differential including atelectasis. Emphysema. White count 15.1. D-dimer 3.13. Arterial blood gases pH 7.459 PO2 46.8. Sodium 130 potassium 3.3. Chloride 93. The patient was swabbed for COVID-19 and she was placed on contact and droplet isolation in the emergency room. The patient was placed on a BiPAP machine. At the time it was difficult to communicate with the patient as she was on the BiPAP machine. The patient was started on ceftriaxone and azithromycin. She was given Solu-Medrol and a neb treatment as well. She was supplemented with potassium. The patient is being admitted to inpatient status on the date of service is 11/24/2020. Chief Complaint: sob Review of Systems Review of Systems: All systems reviewed & are unremarkable except as noted in HPI and below Constitutional: Constitutional: Reports as per HPI and Reports no additional constitutional complaints Eyes: Eyes: Reports as per HPI and Reports no additional eye complaints ENT: Reports system reviewed and no additional complaints, except as documented and Reports Normal hearing present Cardiovascular: Cardiovascular: Reports no additional cardiovascular complaints Respiratory: Respiratory: Reports no additional respiratory complaints and Reports no additional respiratory complaints Gastrointestinal: Gastrointestinal: Reports as per HPI and Reports no additional gastrointestinal complaints Musculoskeletal: Musculoskeletal: Reports no additional musculoskeletal complaints Integumentary/Breasts: Skin/Breast: Reports system reviewed and no additional complaints, except as docu and Reports as per HPI Neurologic: Reports system reviewed and no additional complaints, except as documented, Reports as per HPI and Reports Normal hearing present Psychiatric: Psychiatric: Reports no additional psychiatric complaints and Reports as per HPI Endocrine: Endocrine: Reports no additional endocrine complaints Hematologic/Lymphatic: Hematologic/Lymphatic: Reports no additional hematologic/lymphatic complaints Allergic/Immunologic: Allergic/Immunologic: Reports no additional allergic/immunologic complaints [facility] Past Medical History Medical History (Updated 11/24/20 @ 20:53 by Marjorie Shah NP) COPD (chronic obstructive pulmonary disease) Gastric ulcer Osteoporosis Surgical History Surgical History (Updated 10/22/19 @ 07:21 by Padma Mckeon DO) History of appendectomy Open procedure due to ruptured appendix April 2012 History of carpal tunnel surgery of right wrist History of oophorectomy, unilateral Right oophorectomy due to dermoid cyst performed at the same time as the patient's open appendectomy April 2012 Previous section Family History Family History Father Diabetes mellitus Cancer Mother Breast cancer Diabetes mellitus Heart disease Sibling Legally blind Diabetes mellitus Sibling Diabetes mellitus Social History Social History (Updated 10/22/19 @ 07:24 by Padma Mckeon DO) Social History: The patient has smoked up to 3 packs of cigarettes per day for 55 years. She started smoking when she was 9 years old. She has cut down to 1 pack of cigarettes per day for the last 1.5 years. She rarely drinks alcohol and only in moderation. She denies any illicit substance use. 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 She lives with her daughter and her daughter's boyfriend. Code status: Full code Smoking packs per day: 0.5 Smoking cigarettes per day: 10.0 Years smoked: 56
[2020-11-24] MEDS: predniSONE 40 MG, predniSONE 10 MG 50 MG PO (22:18)
[2020-11-24 22:21] LABS: Anion Gap 8 mmol/L (8-16); Blood Urea Nitrogen 22 mg/dL (7-17); Calcium 8.6 mg/dL (8.4-10.2); Carbon Dioxide 26 mmol/L (22-30); Chloride 95 mmol/L (98-107); Estimated CRCL calculation 70 ml/min; Estimated Glomerular Filt Rate > 60; Glucose 192 mg/dL (65-110); Potassium 3.6 mmol/L (3.4-5.0); Sodium 129 mmol/L (137-145)
[2020-11-25] VITALS (19 sets, daily range): BP systolic 98–117; BP diastolic 64–79; PULSE 80–115; RESP 18–26; TEMP 36.1–36.8; O2SAT 87–98
[2020-11-25] MEDS: IPRATROPIUM BR 0.02% INH SOLN 0.5 MG/2.5 ML VIAL INHALATION ×3 (02:20→14:57)
[2020-11-25] MEDS: ALBUTEROL SULFATE NEB 2.5 MG/0.5 ML INH 5 MG INHALATION ×3 (02:20→14:56)
[2020-11-25] MEDS: predniSONE 40 MG, predniSONE 10 MG 50 MG PO ×2 (03:56→10:01)
[2020-11-25 05:19] LABS: Basophils Percent Auto 0.1 % (0.2-1.2); Hematocrit 39.4 % (37.0-47.0); Immature Granulocyte Absolute 0.07 K/mm3 (0.00-0.031); Immature Granulocyte Percent A 0.5 % (0-0.5); Lymphocytes Absolute Auto 0.69 K/mm3 (0.9-3.2); Lymphocytes Percent Auto 4.6 % (18.3-44.2); Mean Platelet Volume 10.2 fl (7.4-10.4); Monocytes Absolute Auto 0.5 K/mm3 (0.1-0.6); Monocytes Percent Auto 3.5 % (2.6-8.5); Neutrophils Absolute Auto 13.6 K/mm3 (1.3-6.7); Neutrophils Percent Auto 91.3 % (45.5-73.1); Platelet Count Result 246 k/mm3 (150-375); Red Blood Count 4.06 M/mm3 (4.2-5.4); Red Cell Distribution Width 13.2 % (11.5-14.5); White Blood Count 14.9 K/mm3 (4.5-10.0)
[2020-11-25 05:21] LABS: Sodium Urine Random < 5 meq/L
[2020-11-25 05:48] LABS: Anion Gap 11 mmol/L (8-16); Blood Urea Nitrogen 19 mg/dL (7-17); Calcium 8.5 mg/dL (8.4-10.2); Carbon Dioxide 25 mmol/L (22-30); Chloride 96 mmol/L (98-107); Estimated CRCL calculation 82 ml/min; Estimated Glomerular Filt Rate > 60; Glucose 168 mg/dL (65-110); Lactate Dehydrogenase 308 U/L (313-618); Magnesium 2.3 mg/dL (1.6-2.3); Potassium 3.4 mmol/L (3.4-5.0); Sodium 132 mmol/L (137-145)
[2020-11-25 06:15] LABS: Thyroid Stimulating Hormone Reflex 0.321 uIU/mL (0.465-4.68)
[2020-11-25] MEDS: FLUTICASONE/SALMETEROL 230-21 MCG INHALER 1 PUFF 2 PUFF INHALATION (08:11)
--- NOTE | 2020-11-25 08:35 | PC.NURSE ---
Pt ambulated to bedside commode with 4L nasal canula and desated into the 70's. Patient returned to bed and slowly recover to 90% 02.
[2020-11-25] MEDS: diphenhydrAMINE HCl INJ 50 MG/ML VIAL IV PUSH (10:01)
[2020-11-25] MEDS: buPROPion HCL SR (12 HR) 150 MG TAB PO ×2 (10:01→16:26)
[2020-11-25] MEDS: ENOXAPARIN 40 MG/0.4 ML SYRINGE SUB-Q (10:02)
[2020-11-25] MEDS: SODIUM CHLORIDE 0.9% IV 1,000 ML 60 ML IV CONT (10:02)
[2020-11-25 12:19] LABS: Total Triiodothyronine (T3) 0.35 NG/ML (0.97-1.69)
--- NOTE | 2020-11-25 15:33 | PM.IMPN ---
Progress Note: A&P Assessment and Plan (1) Acute respiratory failure with hypoxia: Code(s): J96.01 - Acute respiratory failure with hypoxia Status: Acute Assessment and Plan: The patient presents in acute respiratory failure. ABG 7.46/40/47 on 2 L (mixed venous?). Chest x-ray consistent with pneumonia. CTA shows no PE but confirms pneumonia. Lower extremity venous Dopplers negative for DVT. She was started on BiPAP but has been able to be weaned to nasal cannula at this time. Will start aggressive pulmonary toilet. COVID testing is underway but feel this is less likely. She has epigastric pain and will add Protonix. Wean oxygen as tolerated. Continue antibiotics and nebulizer treatments. Hold on steroids at this time. (2) Community acquired pneumonia: Qualifiers: Laterality: right Lung location: middle lobe of lung Qualified Code(s): J18.9 - Pneumonia, unspecified organism Code(s): J18.9 - Pneumonia, unspecified organism Status: Acute Assessment and Plan: Chest x-ray showing left mid and lower and right lower lung airspace disease consistent with pneumonia. CTA was negative for PE but did show near complete opacification of the left lower lobe and airspace opacity in right middle lobe consistent with pneumonia. Will continue Rocephin and azithromycin. Continue nebulizer treatments. Will order CPT and incentive spirometry. Check sputum. Follow-up on blood cultures. White count relatively unchanged but patient has been on steroids making is unreliable. (3) COPD with acute lower respiratory infection: Code(s): J44.0 - Chronic obstructive pulmonary disease with (acute) lower respiratory infection Status: Acute Assessment and Plan: Patient was on steroids on admission but these have been stopped. No wheezing. Oxygen requirements decreasing. CTA more consistent with pneumonia. Will hold on continuing steroids at this time. Continue nebulizer treatments. (4) Acute hyponatremia: Code(s): E87.1 - Hypo-osmolality and hyponatremia Status: Acute Assessment and Plan: Serum sodium 130 on admission. urine sodium less than 5 to suggest dehydration. With IV fluids, sodium improved to 132. Continue to monitor. (5) Tobacco dependence: Code(s): F17.200 - Nicotine dependence, unspecified, uncomplicated Status: Acute Assessment and Plan: She states she quit tobacco 1 month ago. She was congratulated on quitting and encouraged to remain abstinent from smoking (6) Suspected COVID-19 virus infection: Code(s): Z20.822 - Contact with and (suspected) exposure to COVID-19 Status: Acute Assessment and Plan: COVID testing in progress. She is unvaccinated. The patient is on droplet and contact isolation. (7) DVT prophylaxis: Code(s): Z29.9 - Encounter for prophylactic measures, unspecified Status: Acute Assessment and Plan: Lovenox Subjective Date/time seen: 11/25/20 15:33 Interval history: 65yo female with COPD here for SOB and cough and found to have PNA. No CP. SOB better. She wears 2L O2 at night but does not have NIV. She does have nebulizer treatments at home as well. Quit tobacco 1 month ago. Sputum was brown but has changed to yellowish but no blood. Exam Narrative: Exam Narrative: AF 97.0 107/78 89 20 97% 3L Gen - NARD sitting up in bed Chest - Egophony to the LLL and dul to percussin. nml RR CV - RRR S1/S2; Tele showing no significant dysrhythmias Abd - Soft, ND, mild epigastric pain, +BS Ext - No pedal edema, 2+ DP bilaterally Psych - Nml mood and affect; AOx 3 (not the [facility] name) Skin - Warm and dry Objective Data Vital Signs Vital Signs: Vital Signs - 24 hr 11/24/20 15:36 11/24/20 15:45 11/24/20 15:46 Temperature Pulse Rate 110 H 109 H 112 H Respiratory Rate 28 H 29 H 27 H Blood Pressure Pulse Oximetry 97 11/24/20 16:01
[2020-11-25 16:56] LABS: SARS-CoV-2 RNA PCR Negative
[2020-11-25] MEDS: PANTOPRAZOLE SODIUM IV 40 MG VIAL IV PUSH (21:20)
--- NOTE | 2020-11-25 22:48 | PCRCNOTE ---
Window of time for administration has passed. See next scheduled administration.
[2020-11-26] VITALS (21 sets, daily range): BP systolic 100–120; BP diastolic 61–81; PULSE 78–109; RESP 16–26; TEMP 36–36.6; O2SAT 92–98
[2020-11-26] MEDS: IPRATROPIUM BR 0.02% INH SOLN 0.5 MG/2.5 ML VIAL INHALATION ×4 (00:20→20:56)
[2020-11-26] MEDS: ALBUTEROL SULFATE NEB 2.5 MG/0.5 ML INH 5 MG INHALATION ×4 (00:20→20:55)
[2020-11-26] MEDS: SODIUM CHLORIDE 0.9% IV 1,000 ML 60 ML IV CONT (04:13)
[2020-11-26 05:15] LABS: Basophils Percent Auto 0.4 % (0.2-1.2); Hematocrit 34.7 % (37.0-47.0); Hemoglobin 11.7 g/dL (12.0-15.0); Immature Granulocyte Absolute 0.13 K/mm3 (0.00-0.031); Immature Granulocyte Percent A 1.2 % (0-0.5); Lymphocytes Percent Auto 11.6 % (18.3-44.2); Mean Corpuscular HGB Conc 33.7 g/dl (32-36); Mean Corpuscular Volume 94.8 fl (80-100); Mean Platelet Volume 9.9 fl (7.4-10.4); Monocytes Absolute Auto 0.7 K/mm3 (0.1-0.6); Monocytes Percent Auto 6.5 % (2.6-8.5); Neutrophils Percent Auto 80.3 % (45.5-73.1); Platelet Count Result 257 k/mm3 (150-375); Red Blood Count 3.66 M/mm3 (4.2-5.4); White Blood Count 11.2 K/mm3 (4.5-10.0)
[2020-11-26 05:31] LABS: Anion Gap 7 mmol/L (8-16); Blood Urea Nitrogen 15 mg/dL (7-17); Calcium 8.2 mg/dL (8.4-10.2); Carbon Dioxide 27 mmol/L (22-30); Chloride 103 mmol/L (98-107); Estimated CRCL calculation 70 ml/min; Estimated Glomerular Filt Rate > 60; Glucose 134 mg/dL (65-110); Sodium 137 mmol/L (137-145)
[2020-11-26 05:32] LABS: Platelet Estimate Adequate (Adequate)
[2020-11-26 05:33] LABS: Atypical Lymphocytes Present
[2020-11-26] MEDS: FLUTICASONE/SALMETEROL 230-21 MCG INHALER 1 PUFF 2 PUFF INHALATION ×2 (09:07→20:57)
[2020-11-26] MEDS: PANTOPRAZOLE SODIUM IV 40 MG VIAL IV PUSH (10:35)
[2020-11-26] MEDS: buPROPion HCL SR (12 HR) 150 MG TAB PO ×2 (10:36→16:47)
[2020-11-26] MEDS: ENOXAPARIN 40 MG/0.4 ML SYRINGE SUB-Q (10:36)
--- NOTE | 2020-11-26 17:31 | PM.IMPN ---
Progress Note: A&P Assessment and Plan (1) Acute respiratory failure with hypoxia: Code(s): J96.01 - Acute respiratory failure with hypoxia Status: Acute Assessment and Plan: CXR-->bilateral pneumonia CTA shows no PE but confirms pneumonia Lower extremity venous Dopplers negative for DVT She was started on BiPAP but has been able to be weaned to 3L nc Continue pulmonary toilet COVID neg Wean oxygen as tolerated Continue antibiotics and nebulizer treatments (2) Community acquired pneumonia: Qualifiers: Laterality: right Lung location: middle lobe of lung Qualified Code(s): J18.9 - Pneumonia, unspecified organism Code(s): J18.9 - Pneumonia, unspecified organism Status: Acute Assessment and Plan: Treatment as above Follow cultures (3) COPD with acute lower respiratory infection: Code(s): J44.0 - Chronic obstructive pulmonary disease with (acute) lower respiratory infection Status: Acute Assessment and Plan: Patient was on steroids on admission but these have been stopped No wheezing Now 3L NC CTA more consistent with pneumonia Continue nebulizer treatments (4) Acute hyponatremia: Code(s): E87.1 - Hypo-osmolality and hyponatremia Status: Acute Assessment and Plan: Resolved S/p IVFSerum sodium 130 on admission, 137 today urine sodium less than 5 to suggest dehydration With IV fluids Continue to monitor (5) Tobacco dependence: Code(s): F17.200 - Nicotine dependence, unspecified, uncomplicated Status: Acute Assessment and Plan: She states she quit tobacco 1 month ago (6) Suspected COVID-19 virus infection: Code(s): Z20.822 - Contact with and (suspected) exposure to COVID-19 Status: Acute Assessment and Plan: COVID testing neg (7) DVT prophylaxis: Code(s): Z29.9 - Encounter for prophylactic measures, unspecified Status: Acute Assessment and Plan: Lovenox Subjective Date/time seen: 11/26/20 17:31 Interval history: pt seen and evaluated; complains of cough; on 3L O2 Review of Systems Review of Systems: All systems reviewed & are unremarkable except as noted in HPI and below Exam Const: General: no acute distress, alert and awake Orientation/consciousness: patient oriented x3 HENMT: Head: normocephalic and atraumatic Ears: hearing grossly normal bilaterally and external ears normal Face and sinus: face symmetric Mouth: Yes Normal oral and palatal mucosa present Eyes: Pupils: Equal, round and reactive pupils present EOM: EOMs intact bilaterally Neck: Neck: full ROM, trachea midline and no JVD Thyroid: thyroid normal Chest: Chest palpation & inspection: normal inspection of the chest Resp: Effort & Inspection: normal respiratory effort and Actively coughing Auscultation: diminished lung sounds Cardio: Jugular venous distension: no JVD Rate: regular rate Rhythm: regular rhythm Heart sounds: S1 normal heart sound present and S2 normal heart sound present GI: Inspection: normal to inspection GI Palp: Yes Soft to palpation Percussion: Yes normal to percussion Auscultation: normal bowel sounds : General: Yes no CVA tenderness Back/Spine/Pelvis: Back: no CVA tenderness Skin: General skin exam: normal color Rashes: no rashes Neuro: General: patient oriented x3 and CN's II-XI intact bilaterally Cranial nerves: Yes Equal, round and reactive pupils present Speech: normal speech Psych: Appearance: grossly normal Affect: normal affect Judgement: Good judgement present (Psych) Objective Data Vital Signs Vital Signs: Vital Signs - 24 hr 11/25/20 18:00 11/25/20 20:00 11/25/20 22:00 Temperature 36.3 C L Pulse Rate 109 H 83 80 Respiratory Rate 20 Blood Pressure 117/79 Pulse Oximetry 98 11/26/20 00:00 11/26/20 00:20 11/26/20 00:35 Temperature 36.2 C L Pulse Rate 82 89 92 Respiratory Rate 18 20 20 Blood Pressu
[2020-11-26] MEDS: guaiFENesin/DEXTROMETHORPHAN 10 ML UDC PO (20:42)
[2020-11-27] VITALS (20 sets, daily range): BP systolic 113–133; BP diastolic 79–89; PULSE 84–111; RESP 16–24; TEMP 35.9–36.4; O2SAT 92–96
[2020-11-27] MEDS: SODIUM CHLORIDE 0.9% IV 1,000 ML 60 ML IV CONT (02:38)
[2020-11-27] MEDS: ALBUTEROL SULFATE NEB 2.5 MG/0.5 ML INH 5 MG INHALATION ×3 (02:38→14:04)
[2020-11-27] MEDS: IPRATROPIUM BR 0.02% INH SOLN 0.5 MG/2.5 ML VIAL INHALATION ×3 (02:38→14:05)
[2020-11-27 06:26] LABS: Anion Gap 6 mmol/L (8-16); Blood Urea Nitrogen 11 mg/dL (7-17); Calcium 8.4 mg/dL (8.4-10.2); Carbon Dioxide 28 mmol/L (22-30); Chloride 102 mmol/L (98-107); Estimated CRCL calculation 82 ml/min; Estimated Glomerular Filt Rate > 60; Glucose 96 mg/dL (65-110); Potassium 3.5 mmol/L (3.4-5.0); Sodium 136 mmol/L (137-145)
[2020-11-27] MEDS: ENOXAPARIN 40 MG/0.4 ML SYRINGE SUB-Q (08:19)
[2020-11-27] MEDS: buPROPion HCL SR (12 HR) 150 MG TAB PO ×2 (08:19→16:21)
[2020-11-27] MEDS: BENZONATATE 100 MG CAPSULE PO ×3 (08:19→16:21)
[2020-11-27] MEDS: PANTOPRAZOLE SODIUM IV 40 MG VIAL IV PUSH (08:23)
--- NOTE | 2020-11-27 08:52 | PM.IMPN ---
Progress Note: A&P Assessment and Plan (1) Acute respiratory failure with hypoxia: Code(s): J96.01 - Acute respiratory failure with hypoxia Status: Acute Assessment and Plan: CXR-->bilateral pneumonia CTA shows no PE but confirms pneumonia Lower extremity venous Dopplers negative for DVT She was started on BiPAP, was down to 3L nc, now on 4L Continue pulmonary toilet COVID neg Wean oxygen as tolerated Continue antibiotics and nebulizer treatments (2) Community acquired pneumonia: Qualifiers: Laterality: right Lung location: middle lobe of lung Qualified Code(s): J18.9 - Pneumonia, unspecified organism Code(s): J18.9 - Pneumonia, unspecified organism Status: Acute Assessment and Plan: Treatment as above SC--> Pre Yeast Present BC NGTD (3) COPD with acute lower respiratory infection: Code(s): J44.0 - Chronic obstructive pulmonary disease with (acute) lower respiratory infection Status: Acute Assessment and Plan: Patient was on steroids on admission but these have been stopped No wheezing Now 3L NC CTA more consistent with pneumonia Continue nebulizer treatments (4) Acute hyponatremia: Code(s): E87.1 - Hypo-osmolality and hyponatremia Status: Acute Assessment and Plan: Resolved S/p IVF, Serum sodium 130 on admission, 137-->136 today urine sodium less than 5 to suggest dehydration With IV fluids Continue to monitor (5) Tobacco dependence: Code(s): F17.200 - Nicotine dependence, unspecified, uncomplicated Status: Acute Assessment and Plan: She states she quit tobacco 1 month ago (6) Suspected COVID-19 virus infection: Code(s): Z20.822 - Contact with and (suspected) exposure to COVID-19 Status: Acute Assessment and Plan: COVID testing neg (7) DVT prophylaxis: Code(s): Z29.9 - Encounter for prophylactic measures, unspecified Status: Acute Assessment and Plan: Lovenox (8) Insomnia: Code(s): G47.00 - Insomnia, unspecified Status: Acute Assessment and Plan: Melatonin Subjective Date/time seen: 11/27/20 08:52 Interval history: pt seen and evaluated; +cough; on 4L O2; she tells me she does not sleep well Exam Const: General: no acute distress, alert and awake Orientation/consciousness: patient oriented x3 HENMT: Head: normocephalic and atraumatic Ears: hearing grossly normal bilaterally and external ears normal Face and sinus: face symmetric Mouth: Yes Normal oral and palatal mucosa present Eyes: Pupils: Equal, round and reactive pupils present EOM: EOMs intact bilaterally Neck: Neck: full ROM, trachea midline and no JVD Thyroid: thyroid normal Chest: Chest palpation & inspection: normal inspection of the chest Resp: Effort & Inspection: normal respiratory effort and Actively coughing Auscultation: clear to auscultation bilaterally and diminished lung sounds Cardio: Jugular venous distension: no JVD Rate: regular rate Rhythm: regular rhythm Heart sounds: S1 normal heart sound present and S2 normal heart sound present GI: Inspection: normal to inspection Auscultation: normal bowel sounds : General: Yes no CVA tenderness Back/Spine/Pelvis: Back: no CVA tenderness Skin: General skin exam: normal color Rashes: no rashes Neuro: General: patient oriented x3 and CN's II-XI intact bilaterally Cranial nerves: Yes Equal, round and reactive pupils present Speech: normal speech Psych: Appearance: grossly normal Affect: normal affect Judgement: Good judgement present (Psych) Objective Data Vital Signs Vital Signs: Vital Signs - 24 hr 11/26/20 09:03 11/26/20 09:15 11/26/20 10:00 Temperature Pulse Rate 88 91 107 H Respiratory Rate 24 H 20 Blood Pressure Pulse Oximetry 93 93 11/26/20 12:00 11/26/20 14:00 11/26/20 14:45 Temperature 36.6 C Pulse Rate 93 105 H 105 H Respiratory Rate 26 H 2
[2020-11-27] MEDS: FLUTICASONE/SALMETEROL 230-21 MCG INHALER 1 PUFF 2 PUFF INHALATION (09:24)
[2020-11-27] MEDS: MELATONIN 3 MG TABLET PO (22:25)
[2020-11-28] VITALS (11 sets, daily range): BP systolic 121; BP diastolic 85; PULSE 80–96; RESP 12–20; TEMP 36.8; O2SAT 90–94
--- NOTE | 2020-11-28 01:25 | PC.NURSE ---
This patient, Anirudh Daugherty, was transferred to room 301 on 11/28/20 at 0055. Personal belongings sent with patient. Report given to PHUONG Baugh. Appropriate documentation sent with patient.
--- NOTE | 2020-11-28 01:32 | PC.NURSE ---
Pt. was transferred from IMU to [address] [place] [address] into room 301 at 01:00.
[2020-11-28 07:00] LABS: Basophils Percent Auto 0.5 % (0.2-1.2); Eosinophils Absolute Auto 0.1 K/mm3 (0-0.3); Eosinophils Percent Auto 1.5 % (0-4.4); Hematocrit 36.8 % (37.0-47.0); Hemoglobin 12.2 g/dL (12.0-15.0); Immature Granulocyte Percent A 2.7 % (0-0.5); Lymphocytes Absolute Auto 1.56 K/mm3 (0.9-3.2); Mean Corpuscular HGB Conc 33.2 g/dl (32-36); Mean Corpuscular Hemoglobin 32.3 pg (26-34); Mean Corpuscular Volume 97.4 fl (80-100); Mean Platelet Volume 9.6 fl (7.4-10.4); Monocytes Absolute Auto 0.4 K/mm3 (0.1-0.6); Monocytes Percent Auto 5.8 % (2.6-8.5); Neutrophils Absolute Auto 5.1 K/mm3 (1.3-6.7); Neutrophils Percent Auto 68.5 % (45.5-73.1); Platelet Count Result 356 k/mm3 (150-375); Red Blood Count 3.78 M/mm3 (4.2-5.4); Red Cell Distribution Width 13.6 % (11.5-14.5); White Blood Count 7.4 K/mm3 (4.5-10.0)
[2020-11-28 07:17] LABS: Anion Gap 6 mmol/L (8-16); Blood Urea Nitrogen 7 mg/dL (7-17); Calcium 8.4 mg/dL (8.4-10.2); Carbon Dioxide 27 mmol/L (22-30); Chloride 102 mmol/L (98-107); Estimated CRCL calculation 82 ml/min; Estimated Glomerular Filt Rate > 60; Glucose 101 mg/dL (65-110); Potassium 3.6 mmol/L (3.4-5.0); Sodium 135 mmol/L (137-145)
[2020-11-28] MEDS: ALBUTEROL SULFATE NEB 2.5 MG/0.5 ML INH 5 MG INHALATION ×3 (09:01→21:13)
[2020-11-28] MEDS: IPRATROPIUM BR 0.02% INH SOLN 0.5 MG/2.5 ML VIAL INHALATION ×3 (09:01→21:12)
[2020-11-28] MEDS: FLUTICASONE/SALMETEROL 230-21 MCG INHALER 1 PUFF 2 PUFF INHALATION ×2 (09:02→21:12)
[2020-11-28] MEDS: BENZONATATE 100 MG CAPSULE PO ×3 (09:19→17:45)
[2020-11-28] MEDS: ENOXAPARIN 40 MG/0.4 ML SYRINGE SUB-Q (09:20)
[2020-11-28] MEDS: buPROPion HCL SR (12 HR) 150 MG TAB PO ×2 (09:20→17:45)
[2020-11-28] MEDS: PANTOPRAZOLE SODIUM IV 40 MG VIAL IV PUSH (09:20)
--- NOTE | 2020-11-28 17:09 | P.PN_ITS ---
Progress Note: A&P Assessment and Plan (1) Acute respiratory failure with hypoxia: Code(s): J96.01 - Acute respiratory failure with hypoxia Status: Acute Assessment and Plan: * CXR-->bilateral pneumonia repeat pending * CTA shows no PE but confirms pneumonia * Lower extremity venous Dopplers negative for DVT * She was started on BiPAP, was down to 3L nc, now on 4L * Continue pulmonary toilet * COVID neg * Wean oxygen as tolerated * Continue antibiotics and nebulizer treatments * with more than likely need a new O2 evaluation since patient desats with ambulation (2) Community acquired pneumonia: Qualifiers: Laterality: right Lung location: middle lobe of lung Qualified Code(s): J18.9 - Pneumonia, unspecified organism Code(s): J18.9 - Pneumonia, unspecified organism Status: Acute Assessment and Plan: * Treatment as above * SC--> Pre Yeast Present started Flagyl * BC NGTD (3) COPD with acute lower respiratory infection: Code(s): J44.0 - Chronic obstructive pulmonary disease with (acute) lower respiratory infection Status: Acute Assessment and Plan: * Patient was on steroids on admission but these have been stopped * Now 4L NC * CTA more consistent with pneumonia * Continue nebulizer treatments * restarted Solu-Medrol at 40 mg b.i.d. (4) Acute hyponatremia: Code(s): E87.1 - Hypo-osmolality and hyponatremia Status: Acute Assessment and Plan: * S/p IVF, Serum sodium 130 on admission, 137-->136 >135 * urine sodium less than 5 to suggest dehydration * With IV fluids * Continue to monitor (5) Tobacco dependence: Code(s): F17.200 - Nicotine dependence, unspecified, uncomplicated Status: Acute Assessment and Plan: She states she quit tobacco 1 month ago (6) Suspected COVID-19 virus infection: Code(s): Z20.822 - Contact with and (suspected) exposure to COVID-19 Status: Acute Assessment and Plan: * COVID testing neg (7) DVT prophylaxis: Code(s): Z29.9 - Encounter for prophylactic measures, unspecified Status: Acute Assessment and Plan: Lovenox (8) Insomnia: Code(s): G47.00 - Insomnia, unspecified Status: Acute Assessment and Plan: * Melatonin Subjective Date/time seen: 11/28/20 17:09 patient has no complaints today notes that her shortness of breath have improved. Patient is anxious to discharge. currently on 4 L nasal does use 2 L continuously at home. nursing staff attempted to titrate oxygen down patient tolerated 1 L satting in the 90s. According to respiratory therapist and patient ambulate she has an uncontrolled cough which caused her to have near syncopal episodes. Patient was not discharged today. she will more than likely need a new home O2 evaluation. Patient denies cp, palpitation, diarrhea, constipation, lightheadness, headache, dizziness or chills and fevers. Review of Systems Review of Systems: Narrative: A 14 organ system Review of Systems was performed and pertinent positives included in the HPI, otherwise All systems reviewed & are unremarkable except as noted in HPI and below Exam Narrative: Exam Narrative: General: A well-developed, well-nourished male sitting up in bed no acute distress. HEENT: Normocephalic, atraumatic. PERRL, EOMI. Sclerae anicteric. Oral mucosa moist. Oropharynx clear. Neck: Supple. Respiratory: diminished Cardiovascular: Regular
--- NOTE | 2020-11-28 17:09 | WPDPN ---
Progress Note: A&P Assessment and Plan (1) Acute respiratory failure with hypoxia: Code(s): J96.01 - Acute respiratory failure with hypoxia Status: Acute Assessment and Plan: CXR-->bilateral pneumonia repeat pending CTA shows no PE but confirms pneumonia Lower extremity venous Dopplers negative for DVT She was started on BiPAP, was down to 3L nc, now on 4L Continue pulmonary toilet COVID neg Wean oxygen as tolerated Continue antibiotics and nebulizer treatments with more than likely need a new O2 evaluation since patient desats with ambulation (2) Community acquired pneumonia: Qualifiers: Laterality: right Lung location: middle lobe of lung Qualified Code(s): J18.9 - Pneumonia, unspecified organism Code(s): J18.9 - Pneumonia, unspecified organism Status: Acute Assessment and Plan: Treatment as above SC--> Pre Yeast Present started Flagyl BC NGTD (3) COPD with acute lower respiratory infection: Code(s): J44.0 - Chronic obstructive pulmonary disease with (acute) lower respiratory infection Status: Acute Assessment and Plan: Patient was on steroids on admission but these have been stopped Now 4L NC CTA more consistent with pneumonia Continue nebulizer treatments restarted Solu-Medrol at 40 mg b.i.d. (4) Acute hyponatremia: Code(s): E87.1 - Hypo-osmolality and hyponatremia Status: Acute Assessment and Plan: S/p IVF, Serum sodium 130 on admission, 137-->136 >135 urine sodium less than 5 to suggest dehydration With IV fluids Continue to monitor (5) Tobacco dependence: Code(s): F17.200 - Nicotine dependence, unspecified, uncomplicated Status: Acute Assessment and Plan: She states she quit tobacco 1 month ago (6) Suspected COVID-19 virus infection: Code(s): Z20.822 - Contact with and (suspected) exposure to COVID-19 Status: Acute Assessment and Plan: COVID testing neg (7) DVT prophylaxis: Code(s): Z29.9 - Encounter for prophylactic measures, unspecified Status: Acute Assessment and Plan: Lovenox (8) Insomnia: Code(s): G47.00 - Insomnia, unspecified Status: Acute Assessment and Plan: Melatonin Subjective Date/time seen: 11/28/20 17:09 patient has no complaints today notes that her shortness of breath have improved. Patient is anxious to discharge. currently on 4 L nasal does use 2 L continuously at home. nursing staff attempted to titrate oxygen down patient tolerated 1 L satting in the 90s. According to respiratory therapist and patient ambulate she has an uncontrolled cough which caused her to have near syncopal episodes. Patient was not discharged today. she will more than likely need a new home O2 evaluation. Patient denies cp, palpitation, diarrhea, constipation, lightheadness, headache, dizziness or chills and fevers. Review of Systems Review of Systems: Narrative: A 14 organ system Review of Systems was performed and pertinent positives included in the HPI, otherwise All systems reviewed & are unremarkable except as noted in HPI and below Exam Narrative: Exam Narrative: General: A well-developed, well-nourished male sitting up in bed no acute distress. HEENT: Normocephalic, atraumatic. PERRL, EOMI. Sclerae anicteric. Oral mucosa moist. Oropharynx clear. Neck: Supple. Respiratory: diminished Cardiovascular: Regular rate and rhythm with S1-S2. Gastrointestinal: Abdomen is soft, nontender, and nondistended with positive bowel sounds. No organomegaly. Skin: Warm, dry, and slightly pale.. No rash or lesions on limited exam. Extremities: No cyanosis, clubbing, or edema. Radial and pedal pulses intact. Neurological: Alert. Cranial nerves 2-12 are grossly intact. No gross focal deficits to casual conversation. Psychiatric: Pleasant and cooperative with normal mood and affect. Judgment an
[2020-11-28] MEDS: methylPREDNISolone SOD SUCC 40 MG VIAL IV PUSH (17:46)
[2020-11-28] MEDS: metroNIDAZOLE 250 MG TABLET 500 MG PO (21:39)
[2020-11-28] MEDS: guaiFENesin/DEXTROMETHORPHAN 10 ML UDC PO (21:41)
[2020-11-28] MEDS: MELATONIN 3 MG TABLET PO (21:41)
[2020-11-29] VITALS (14 sets, daily range): BP systolic 114–126; BP diastolic 63–92; PULSE 82–105; RESP 18–22; TEMP 36.2–36.8; O2SAT 87–95
[2020-11-29] MEDS: IPRATROPIUM BR 0.02% INH SOLN 0.5 MG/2.5 ML VIAL INHALATION ×3 (02:08→13:42)
[2020-11-29] MEDS: ALBUTEROL SULFATE NEB 2.5 MG/0.5 ML INH 5 MG INHALATION ×3 (02:08→13:42)
[2020-11-29 03:42] LABS: Osmolality, Urine 631 mOsm/kg (50-1200)
[2020-11-29 06:28] LABS: Hematocrit 37.6 % (37.0-47.0); Hemoglobin 12.5 g/dL (12.0-15.0); Mean Corpuscular HGB Conc 33.2 g/dl (32-36); Mean Corpuscular Hemoglobin 32.6 pg (26-34); Mean Corpuscular Volume 98.2 fl (80-100); Mean Platelet Volume 9.3 fl (7.4-10.4); Platelet Count Result 428 k/mm3 (150-375); Red Blood Count 3.83 M/mm3 (4.2-5.4); Red Cell Distribution Width 13.5 % (11.5-14.5); White Blood Count 6.2 K/mm3 (4.5-10.0)
[2020-11-29 06:37] LABS: Alanine Aminotransferase 41 U/L (4-35); Albumin Level 3.4 g/dL (3.5-5.1); Alkaline Phosphatase 78 U/L (38-126); Anion Gap 7 mmol/L (8-16); Aspartate Amino Transferase 30 U/L (14-36); Bilirubin,Total 0.6 mg/dL (0.2-1.3); Blood Urea Nitrogen 11 mg/dL (7-17); Calcium 8.7 mg/dL (8.4-10.2); Carbon Dioxide 28 mmol/L (22-30); Chloride 101 mmol/L (98-107); Estimated CRCL calculation 100 ml/min; Estimated Glomerular Filt Rate > 60; Glucose 138 mg/dL (65-110); Potassium 4.1 mmol/L (3.4-5.0); Sodium 136 mmol/L (137-145)
[2020-11-29] MEDS: FLUTICASONE/SALMETEROL 230-21 MCG INHALER 1 PUFF 2 PUFF INHALATION (09:01)
[2020-11-29] MEDS: methylPREDNISolone SOD SUCC 40 MG VIAL IV PUSH (09:27)
[2020-11-29] MEDS: ENOXAPARIN 40 MG/0.4 ML SYRINGE SUB-Q (09:27)
[2020-11-29] MEDS: buPROPion HCL SR (12 HR) 150 MG TAB PO (09:28)
[2020-11-29] MEDS: BENZONATATE 100 MG CAPSULE PO ×2 (09:28→12:06)
[2020-11-29] MEDS: PANTOPRAZOLE SODIUM IV 40 MG VIAL IV PUSH (09:28)
--- NOTE | 2020-11-29 10:48 | PM.DS ---
DS: Admitting Diagnosis Admitting Diagnosis pneumonia DS: Discharge Diagnosis Discharge Diagnosis (1) Acute respiratory failure with hypoxia: Code(s): J96.01 - Acute respiratory failure with hypoxia Status: Acute Assessment and Plan: CXR-->bilateral pneumonia repeat pending CTA shows no PE but confirms pneumonia Lower extremity venous Dopplers negative for DVT She was started on BiPAP, was down to 3L nc, now on 4L Continue pulmonary toilet COVID neg Wean oxygen as tolerated Continue antibiotics and nebulizer treatments with more than likely need a new O2 evaluation since patient desats with ambulation will send patient home with 1 more day of antibiotics and 4 days of steroids (2) Community acquired pneumonia: Qualifiers: Laterality: right Lung location: middle lobe of lung Qualified Code(s): J18.9 - Pneumonia, unspecified organism Code(s): J18.9 - Pneumonia, unspecified organism Status: Acute Assessment and Plan: Treatment as above SC--> Pre Yeast Present started Flagyl BC NGTD (3) COPD with acute lower respiratory infection: Code(s): J44.0 - Chronic obstructive pulmonary disease with (acute) lower respiratory infection Status: Acute Assessment and Plan: Patient was on steroids on admission but these have been stopped Now 4L NC CTA more consistent with pneumonia Continue nebulizer treatments restarted Solu-Medrol at 40 mg b.i.d. (4) Acute hyponatremia: Code(s): E87.1 - Hypo-osmolality and hyponatremia Status: Acute Assessment and Plan: S/p IVF, Serum sodium 130 on admission, 137-->136 >135 urine sodium less than 5 to suggest dehydration With IV fluids Continue to monitor (5) Tobacco dependence: Code(s): F17.200 - Nicotine dependence, unspecified, uncomplicated Status: Acute Assessment and Plan: She states she quit tobacco 1 month ago (6) Suspected COVID-19 virus infection: Code(s): Z20.822 - Contact with and (suspected) exposure to COVID-19 Status: Acute Assessment and Plan: COVID testing neg (7) DVT prophylaxis: Code(s): Z29.9 - Encounter for prophylactic measures, unspecified Status: Acute Assessment and Plan: Lovenox (8) Insomnia: Code(s): G47.00 - Insomnia, unspecified Status: Acute Assessment and Plan: Melatonin DS: Summary Hospital Course Hospital Course: patient is a 65-year-old female with a past medical history of COPD, gastric ulcers, osteoporosis who presented to the ED with a productive cough and increased shortness of breath over the last 3 weeks. Chest x-ray read that the patient did have a paced sees in the left mid to lower and right lower zones concerning for pneumonia, emphysema. patient also had a venous Doppler done that showed no deep vein thrombosis bilaterally. CT was negative for pulmonary embolus but did show that the patient did have a pneumonia. On arrival patient was placed on a BiPAP which helped the patient with her shortness of breath. Patient chronically wears 2 L of nasal cannula at home. Today patient said she had a cough that is productive. However she stated that she was has a cough that is always productive some time she coughs so hard that her the flank will start her that when she know she sick any 0 to the hospital. However she does state that she is feeling a whole lot better and that she is ready to go home. She is eating okay she has taste and smell an appetite. Upon arrival patient's with wbc's was 15.1 and today is 6.2. Hemoglobin and hematocrit have remained stable throughout the visit. Although the labs have remained stable and were stable upon time of presentation. Repeat chest x-ray did show improving lower left lobe airspace disease and resolving pneumonia. Blood cultures had no growth to date sputum culture did grow yeast. Patient denies sweats
--- NOTE | 2020-11-29 13:50 | HOMEO2EVAL ---
Evaluation was performed at [facility] Home Oxygen Evaluation RC: Home Oxygen (O2) Evaluation Start: 11/29/20 10:53 Freq: ONCE Status: Active Protocol: RPE Activity Type Activity Date Activity User E-Sign Co-Sign Detail Recorded Client Recorded Date Recorded By Document 11/29/20 13:20 JAYLON [email or web address] 11/29/20 13:48 JAYLON Document 11/29/20 13:22 JAYLON [id number] 11/29/20 13:48 JAYLON Document 11/29/20 13:23 JAYLON [email or web address] 11/29/20 13:48 JAYLON Document 11/29/20 13:25 JAYLON [email or web address] 11/29/20 13:48 JAYLON Document 11/29/20 13:30 JAYLON [email or web address] 11/29/20 13:48 JAYLON 11/29/20 11/29/20 11/29/20 13:20 13:22 13:23 Home O2 Evaluation Test Phase Resting Resting Resting Oxygen Delivery Room Air Nasal Cannula Nasal Cannula Oxygen Flow Rate (L/min) 1 2 Pulse Oximetry (90-100 %) 87 L 87 L 92 Home Oxygen Evaluation Comments Treatment Charges O2 Evaluation - Inpatient 11/29/20 11/29/20 13:25 13:30 Home O2 Evaluation Test Phase Exercise Resting Oxygen Delivery Nasal Cannula Nasal Cannula Oxygen Flow Rate (L/min) 2 2 Pulse Oximetry (90-100 %) 91 92 Home Oxygen Evaluation Comments HOME 02 AT 2 L AT REST AND WITH EXERTION Treatment Charges
--- NOTE | 2020-11-29 13:52 | PCRCNOTE ---
HOME O2 EVAL DONE. 2L AT REST AND WITH EXERTION. PT HAS HOME O2 WITH [facility]. I WILL UPDATE THEM WITH NEW EVAL. RN NOTIFIED.
== END 2020-11-29 15:25 | disposition home or self-care (01) | DRG 193 ==
LOC: ANHED 14:55 → ANHIMU 11-26 11:00 → ANH3MEDSUR 11-29 10:15 → ANHIMU 12-02 13:09
PROVIDERS: Emergency Medicine; Nurse Practitioner; Nurse Practitioner Adult Health; Admitting Provider Family Medicine; Emergency Provider Emergency Medicine; PCP Nurse Practitioner Family; Visit Provider Internal Medicine
DX: J18.9 Pneumonia, unspecified organism (principal); J96.01 Acute respiratory failure with hypoxia; E87.1 Hypo-osmolality and hyponatremia; J44.0 Chronic obstructive pulmonary disease with (acute) lower respiratory infection; Z20.822 Contact with and (suspected) exposure to COVID-19; M81.0 Age-related osteoporosis without current pathological fracture; E87.6 Hypokalemia; G47.00 Insomnia, unspecified; Z87.891 Personal history of nicotine dependence; Z90.49 Acquired absence of other specified parts of digestive tract; Z90.721 Acquired absence of ovaries, unilateral
CPT/HCPCS: 36415; 36600; 71045; 71046; 71275; 80048; 80053; 82805; 83615; 83735; 83935; 84300; 84439; 84443; 84480; 85025; 85027; 85380; 87040; 87070; 87205; 93005; 93970; 94002; 94618; 94640; 94667; 99285; A9270; C9113; C9803; J0456; J0696; J1200; J1650; J2920; J2930; J3480; J7030; J7512; Q9967; U0003; U0005

== ENCOUNTER 2022-05-09 16:17 | Emergency (ER) | payer OTHER, SELFPAY ==
[2022-05-09 16:20] VITALS: BP 121/85; PULSE 90; RESP 20; TEMP 36.6; O2SAT 94
== END 2022-05-09 16:55 | disposition left against medical advice (07) ==
PROVIDERS: PCP Nurse Practitioner Family
DX: R06.02 Shortness of breath (principal)
CPT/HCPCS: 99199

== ENCOUNTER 2022-09-27 19:15 | Observation (INO) | payer MEDICARE, MEDICAID, SELFPAY ==
[2022-09-27] VITALS (18 sets, daily range): BP systolic 112–132; BP diastolic 61–82; PULSE 89–112; RESP 14–93; TEMP 37.4–37.5; O2SAT 91–98; BMI 24.3
--- NOTE | ~2022-09-27 | US_ITS ---
EXAMINATION: US right upper quadrant DATE: 09/29/2022 16:53 INDICATION: Right upper quadrant abdominal pain. TECHNIQUE: Multiple grayscale and Doppler ultrasound images of the abdomen were obtained. COMPARISON: CT abdomen and pelvis 04/08/2012 FINDINGS: The visualized portions of the head and body of the pancreas are normal. The liver is yenny l without focal lesion. There is normal flow in main portal vein. The gallbladder is normal in size. No gallstones or gallbladder wall thickening. There is no sonographic Rodriguez sign. The common duct is normal and measures 2 mm. IMPRESSION: 1. Normal right upper quadrant ultrasound. Reviewed, dictated and finalized at location E.
--- NOTE | ~2022-09-27 | CT_ITS ---
Clinical Indication: Chest pain, hypoxia CT Scan of the Chest with Contrast: Technique: Contiguous sections were acquired throughout the chest after intravenous administration of 100 cc of Omnipaque 350. Dose reduction technique was used on this scan by utilizing automated expos ure control and iterative reconstruction technique. The dose-length product (DLP) was 383.39 mGy-cm. COMPARISON: 11/25/2020 Findings: There is no evidence of any significant mediastinal, hilar or axillary lymphadenopathy. There is no f illing defect in the pulmonary arterial tree to suggest pulmonary embolus. There is no evidence of ao rtic dissection or aneurysm. There is no evidence of pleural or pericardial effusion. There is severe emphysema, particularly the upper lobes bilaterally. There is probable bibasilar atel ectatic change, less likely pneumonia. Images through the upper abdomen reveal no abnormalities. Impression: No evidence of pulmonary embolus, aortic dissection, or aortic aneurysm. Severe emphysema, particularly the upper lobes. Probable bibasilar atelectatic change, less likely pneumonia. Correlate clinically. Reviewed, dictated and finalized at location . Impression: No evidence of pulmonary embolus, aortic dissection, or aortic aneurysm. Severe emphysema, particularly the upper lobes. Probable bibasilar atelectatic change, less likely pneumonia. Correlate clinica lly.
--- NOTE | ~2022-09-27 | XR_ITS ---
EXAMINATION: XR chest 1V portable Exam Date/Time: 09/27/2022 19:50 CDT HISTORY: INCREASING Shortness of breath WITH RIGHT SIDED CHEST PAIN Comparison: 11/29/2020. RESULT: Lines, tubes, and devices: None. Lungs and pleura: Patchy airspace disease in the right lower lung. Bibasilar scar/atelectasis. Senes cent and emphysematous change. Cardiomediastinal silhouette: Stable. Other: No acute osseous or upper abdominal finding. IMPRESSION: Right lower lung airspace disease may represent pneumonia in the appropriate clinical context. Reviewed, dictated and finalized at location K. IMPRESSION: Right lower lung airspace disease may represent pneumonia in the appropriate cl inical context.
--- NOTE | 2022-09-27 19:34 | ECG_ITS ---
Measurements Intervals [place] Rate: 102 P: 60 SD: 148 QRS: 6 QRSD: 83 T: 72 QT: 340 QTc: 444 Interpretive Statements SINUS TACHYCARDIA DELAYED PRECORDIAL R/S TRANSITION BORDERLINE T WAVE ABNORMALITY- ANT/HIGH LAT LEADS BASELINE WANDER- V3 BORDERLINE ECG COMPARED TO ECG 11/24/2020 13:59:08 NO SIGNIFICANT CHANGES Electronically Signed On 09-28-2022 8:08:39 CDT by Azeem Lang D.O.
--- NOTE | 2022-09-27 19:34 | ED.SOB ---
HPI - SOB/Dyspnea General Chief Complaint: Shortness of Breath/Dyspnea Stated Complaint: short of breath Time Seen by Provider: 09/27/22 19:29 Source: patient and EMS Mode of arrival: EMS History of Present Illness HPI Narrative: Patient is 67 years old white female came to the emergency room by ambulance from home complaining of increased shortness of breath over the last few days with right chest pain. Patient is always on 3 L/min of oxygen during daytime and 4 L at night. Patient report productive cough which is chronic. She denies any fever, chills, nausea, vomiting. Related Data Home Medications Medication Instructions Recorded Confirmed albuterol sulfate 90 mcg/actuation 2 puff inhalation QID PRN 10/22/19 11/24/20 aerosol inhaler Shortness Of Breath bupropion HCl 150 mg tablet,12 hr 150 mg PO BID 11/24/20 11/24/20 sustained-release fluticasone propionate 230 2 puff inhalation BID 11/24/20 11/24/20 mcg-salmeterol 21 mcg/actuation HFA inhaler (Advair HFA) tiotropium bromide 2.5 2.5 mcg inhalation DAILY 11/24/20 11/24/20 mcg/actuation mist for inhalation (Spiriva Respimat) Allergies Allergy/AdvReac Type Severity Reaction Status Date / Time Contrast Media Allergy Unknown RASH TO CT Uncoded 09/27/22 19:25 SCAN DYE UNKNOWN ANTIBIOTIC Allergy Unknown Uncoded 09/27/22 19:25 Review of Systems Review of Systems: All systems reviewed & are unremarkable except as noted in HPI and below PMFSH Past Medical History Medical History COPD (chronic obstructive pulmonary disease) Gastric ulcer Osteoporosis Surgical History Surgical History History of appendectomy Open procedure due to ruptured appendix April 2012 History of carpal tunnel surgery of right wrist History of oophorectomy, unilateral Right oophorectomy due to dermoid cyst performed at the same time as the patient's open appendectomy April 2012 Previous section Family History Family History Father Diabetes mellitus Cancer Mother Breast cancer Diabetes mellitus Heart disease Sibling Legally blind Diabetes mellitus Sibling Diabetes mellitus Social History Social History Social History: The patient has smoked up to 3 packs of cigarettes per day for 55 years. She started smoking when she was 9 years old. She has cut down to 1 pack of cigarettes per day for the last 1.5 years. She rarely drinks alcohol and only in moderation. She denies any illicit substance use. 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 She lives with her daughter and her daughter's boyfriend. Code status: Full code Smoking packs per day: 0.5 Smoking cigarettes per day: 10.0 Years smoked: 56 Smoking pack-years: 28.00 Smoking status: Former smoker Tobacco type: cigarettes Alcohol intake: never Substance use: never Gender identity (if verbalized by the patient): Female Spiritual care concerns: No Exam Narrative: General appearance: Well-developed, well-nourished Skin: Normal color Head: Normocephalic, nontraumatic Eyes: Clear conjunctiva ENT: Oropharynx normal, ears normal, nose normal Neck: Supple, nontender Chest and respiratory:, Diminution of air entry bilaterally, few scattered rhonchi Heart: Tachycardia Abdomen: Soft, nontender, no organomegaly, quiet bowel sounds Vascular: Normal peripheral pulses, normal capillary refill. Musculoskeletal: Normal range of motion, nontender back Neurologic: Alert and oriented ?3, [employer] is normal as tested, no gross motor deficit
[2022-09-27 19:46] LABS: Alveolar/Arterial O2 Gradient 153.8 mmHg; Base Excess ABG 0.6 mEq/l (+/-2.0); Fractional Inspired Oxygen 36 %; HCO3 ABG 24.5 mEq/l (22.0-26.0); Oxygen Content ABG 18.2 %vol (16.0-22.0); Oxygen Saturation ABG 91.8 % (95.0-100.0); Oxyhemoglobin 88.1 % THb (90.0-100.0); PCO2 ABG 37.2 mmHg (35.0-45.0); PO2 ABG 59.7 mmHg (80.0-100.0); PO2 FiO2 Ratio Arterial Blood 1.66 %; Total Hemoglobin 14.7 g/dL (12.0-18.0); pH ABG 7.437 (7.350-7.450)
[2022-09-27 19:47] LABS: Device NASAL CANNULA; Modified Allen's Test Pass; Site Drawn LEFT RADIAL
[2022-09-27 20:01] LABS: Basophils Absolute Auto 0.1 K/mm3 (0.0-0.1); Basophils Percent Auto 0.6 % (0.2-1.2); Eosinophils Percent Auto 0.2 % (0-4.4); Hematocrit 42.6 % (37.0-47.0); Hemoglobin 14.3 g/dL (12.0-15.0); Immature Granulocyte Absolute 0.03 K/mm3 (0.00-0.031); Immature Granulocyte Percent A 0.3 % (0-0.5); Lymphocytes Absolute Auto 0.74 K/mm3 (0.9-3.2); Lymphocytes Percent Auto 8.6 % (18.3-44.2); Mean Corpuscular HGB Conc 33.6 g/dl (32-36); Mean Corpuscular Hemoglobin 33.2 pg (26-34); Mean Corpuscular Volume 98.8 fl (80-100); Mean Platelet Volume 9.7 fl (7.4-10.4); Monocytes Absolute Auto 0.3 K/mm3 (0.1-0.6); Monocytes Percent Auto 3.1 % (2.6-8.5); Neutrophils Absolute Auto 7.5 K/mm3 (1.3-6.7); Neutrophils Percent Auto 87.2 % (45.5-73.1); Platelet Count Result 209 k/mm3 (150-375); Red Blood Count 4.31 M/mm3 (4.2-5.4); Red Cell Distribution Width 13.4 % (11.5-14.5); White Blood Count 8.6 K/mm3 (4.5-10.0)
[2022-09-27 20:07] LABS: Alanine Aminotransferase 39 U/L (6-35); Albumin Level 4.4 g/dL (3.5-5.1); Alkaline Phosphatase 95 U/L (38-126); Anion Gap 8 mmol/L (8-16); Aspartate Amino Transferase 35 U/L (14-36); Bilirubin,Total 2.1 mg/dL (0.2-1.3); Blood Urea Nitrogen 13 mg/dL (7-17); Calcium 8.7 mg/dL (8.4-10.2); Carbon Dioxide 25 mmol/L (22-30); Chloride 102 mmol/L (98-107); Estimated Glomerular Filt Rate > 60; Glucose 123 mg/dL (65-110); Magnesium 1.6 mg/dL (1.6-2.3); Potassium 3.6 mmol/L (3.4-5.0); Sodium 135 mmol/L (137-145)
[2022-09-27 20:08] LABS: Partial Thromboplastin Time 23.4 SECONDS (22.3-36.8); Prothrombin Time 13.6 Seconds (11.1-14.7)
[2022-09-27 20:10] LABS: D Dimer 0.88 ug/mL (<0.48)
[2022-09-27 20:18] LABS: NT Pro B Type Natriuretic Pept 87 pg/mL (19.9-100); Troponin I < 0.012 ng/mL (0.000-0.034)
[2022-09-27 20:49] LABS: CRP 2.2 mg/dL (<1.0)
[2022-09-27] MEDS: IPRATROPIUM BR 0.02% INH SOLN 0.5 MG/2.5 ML VIAL INHALATION (20:59)
[2022-09-27] MEDS: LEVALBUTEROL NEB 1.25 MG/3 ML INHALATION (20:59)
--- NOTE | 2022-09-27 21:07 | PM.IMHP ---
H&P: HPI History of Present Illness Date/Time: 09/27/22 21:07 Chief Complaint: 67 years old female with past medical history of COPD presented to the hospital worsening shortness of breath worsening gradually worsening with activity associated with wheezing patient also complains of cough multiple times a day associated with chills intermittent fever at the ER patient was found to have hypoxia tachycardia leukocytosis chest x-ray positive for pneumonia patient was found to have COPD exacerbation pneumonia associated with acute hypoxemic respiratory failure started IV antibiotic IV fluid nebulizer treatment IV steroid admitted for further evaluation and treatment Review of Systems Review of Systems: 12 system review was done negative except above [facility] Past Medical History Medical History (Updated 09/27/22 @ 21:10 by Tracy Russell MD) COPD (chronic obstructive pulmonary disease) Gastric ulcer Osteoporosis Surgical History Surgical History History of appendectomy Open procedure due to ruptured appendix April 2012 History of carpal tunnel surgery of right wrist History of oophorectomy, unilateral Right oophorectomy due to dermoid cyst performed at the same time as the patient's open appendectomy April 2012 Previous section Family History Family History Father Diabetes mellitus Cancer Mother Breast cancer Diabetes mellitus Heart disease Sibling Legally blind Diabetes mellitus Sibling Diabetes mellitus Social History Social History Social History: The patient has smoked up to 3 packs of cigarettes per day for 55 years. She started smoking when she was 9 years old. She has cut down to 1 pack of cigarettes per day for the last 1.5 years. She rarely drinks alcohol and only in moderation. She denies any illicit substance use. 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 She lives with her daughter and her daughter's boyfriend. Code status: Full code Smoking packs per day: 0.5 Smoking cigarettes per day: 10.0 Years smoked: 56 Smoking pack-years: 28.00 Smoking status: Former smoker Tobacco type: cigarettes Alcohol intake: never Substance use: never Gender identity (if verbalized by the patient): Female Spiritual care concerns: No Meds Home Medications and Allergies Home Medications Medication Instructions Recorded Confirmed Type albuterol sulfate 90 mcg/actuation 2 puff inhalation QID PRN 10/22/19 11/24/20 History aerosol inhaler Shortness Of Breath bupropion HCl 150 mg tablet,12 hr 150 mg PO BID 11/24/20 11/24/20 History sustained-release fluticasone propionate 230 2 puff inhalation BID 11/24/20 11/24/20 History mcg-salmeterol 21 mcg/actuation HFA inhaler (Advair HFA) tiotropium bromide 2.5 2.5 mcg inhalation DAILY 11/24/20 11/24/20 History mcg/actuation mist for inhalation (Spiriva Respimat) amoxicillin 875 mg-potassium 1 tablet PO Q12H #10 tabs 11/29/20 Rx clavulanate 125 mg tablet benzonatate 100 mg capsule 100 mg PO TID #30 caps 11/29/20 Rx prednisone 50 mg tablet 50 mg PO DAILY #5 tabs 11/29/20 Rx Allergies Allergy/AdvReac Type Severity Reaction Status Date / Time Contrast Media Allergy Unknown RASH TO CT Uncoded 09/27/22 19:25 SCAN DYE UNKNOWN ANTIBIOTIC Allergy Unknown Uncoded 09/27/22 19:25 Vital Signs Vital Signs - 24 hr 09/27/22 19:17 09/27/22 19:34 09/27/22 19:35 Temperature 99.4 F Pulse Rate 102 H 101 H Respiratory Rate 93 H 25 H Blood Pressure 132/82 112/62 Pulse Oximetry 93 95 95 Oxygen Delivery Nasal Cannula Nasal Cannula Oxygen Flow Rate 3 3 09/27/22 19:20 09/27/22 19:31 09/27/22 19:32 Temperature Pulse Rate 104 H 112 H 102 H Respiratory Rate 25 H 25 H 25 H Blood Pressure 112/61 Pulse Oximetry 91 95 9
[2022-09-27 21:27] LABS: Ammonia < 9 umol/L (9-30)
[2022-09-27 21:29] LABS: Lactic Acid Reflex 0.8 mmol/L (0.7-2.0)
[2022-09-27] MEDS: methylPREDNISolone SOD SUCC 125 MG VIAL IV PUSH (21:32)
[2022-09-27] MEDS: SODIUM CHLORIDE 0.9% IV 1,000 ML 100 ML IV CONT (21:33)
[2022-09-27] MEDS: AZITHROMYCIN 500 MG/NS 250 ML 500 MG/250 ML BAG 250 MG IVPB (21:40)
[2022-09-27 21:41] LABS: Troponin I < 0.012 ng/mL (0.000-0.034)
[2022-09-27] MEDS: ACETAMINOPHEN 325 MG TABLET 650 MG PO (22:38)
--- NOTE | 2022-09-27 22:38 | ADMGEN ---
This patient, Anirudh Daugherty, was admitted to Medical Room 348-01. Patient/family oriented to hospital policies and general routines including ID bracelet, bed and alarms, visiting hours, pain management, procedures, bathroom and other care routines, personal items, smoking policy, room service/diet, and visiting hours. Information on how to activate the Rapid Response Team has been discussed. Patient/Family are encouraged to report perceived risks to care and to ask questions if they do not understand what they are told or what they should do.
[2022-09-27] MEDS: guaiFENesin/DEXTROMETHORPHAN 10 ML UDC PO (22:55)
[2022-09-27] MEDS: FAMOTIDINE 20 MG TABLET PO (22:56)
[2022-09-27] MEDS: WATER FOR IRRIGATION, STERILE 1,000 ML BOTTLE 1000 ML (23:50)
[2022-09-28] VITALS (22 sets, daily range): BP systolic 111–114; BP diastolic 70–75; PULSE 72–91; RESP 16–22; TEMP 36.3–36.6; O2SAT 94–97
[2022-09-28] MEDS: LEVALBUTEROL NEB 1.25 MG/3 ML 0.63 MG INHALATION ×4 (03:01→20:56)
[2022-09-28] MEDS: IPRATROPIUM BR 0.02% INH SOLN 0.5 MG/2.5 ML VIAL INHALATION ×4 (03:01→20:56)
[2022-09-28] MEDS: methylPREDNISolone SOD SUCC 125 MG VIAL 60 MG IV PUSH ×3 (05:25→17:42)
[2022-09-28] MEDS: ACETAMINOPHEN 325 MG TABLET 650 MG PO (05:33)
[2022-09-28 05:55] LABS: Hematocrit 39.6 % (37.0-47.0); Hemoglobin 12.9 g/dL (12.0-15.0); Mean Corpuscular HGB Conc 32.6 g/dl (32-36); Mean Corpuscular Hemoglobin 32.3 pg (26-34); Mean Platelet Volume 10.1 fl (7.4-10.4); Platelet Count Result 206 k/mm3 (150-375); Red Cell Distribution Width 13.3 % (11.5-14.5); White Blood Count 11.7 K/mm3 (4.5-10.0)
[2022-09-28 06:04] LABS: Alanine Aminotransferase 34 U/L (6-35); Albumin Level 4.1 g/dL (3.5-5.1); Alkaline Phosphatase 67 U/L (38-126); Anion Gap 10 mmol/L (8-16); Aspartate Amino Transferase 31 U/L (14-36); Bilirubin,Total 1.6 mg/dL (0.2-1.3); Blood Urea Nitrogen 10 mg/dL (7-17); Calcium 8.3 mg/dL (8.4-10.2); Carbon Dioxide 20 mmol/L (22-30); Chloride 106 mmol/L (98-107); Estimated CRCL calculation 97 ml/min; Estimated Glomerular Filt Rate > 60; Glucose 175 mg/dL (65-110); Potassium 3.4 mmol/L (3.4-5.0); Sodium 136 mmol/L (137-145)
[2022-09-28 06:15] LABS: Troponin I < 0.012 ng/mL (0.000-0.034)
[2022-09-28 06:50] LABS: Band Neutrophils Percent 28 % (0-6); Lymphocytes Absolute Manual 0.93 K/mm3 (1.1-4.5); Lymphocytes Percent Manual 8 % (18-44); Monocytes Absolute Manual 0.93 K/mm3 (0.1-0.90); Monocytes Percent Manual 8 % (3-9); Neutrophils Absolute Manual 9.82 K/mm3 (1.7-7.2); Neutrophils Percent Manual 56 % (46-73); Platelet Estimate Adequate (Adequate); Total Cells Counted 100
[2022-09-28 06:51] LABS: Schistocytes None Seen (NORMAL)
[2022-09-28] MEDS: POTASSIUM CHLORIDE 20 MEQ TABLET 40 MEQ PO (09:44)
[2022-09-28] MEDS: BENZONATATE 100 MG CAPSULE PO ×3 (09:44→17:41)
[2022-09-28] MEDS: SODIUM CHLORIDE 0.9% IV 1,000 ML 100 ML IV CONT (09:44)
[2022-09-28] MEDS: ENOXAPARIN 40 MG/0.4 ML SYRINGE SUB-Q (09:45)
[2022-09-28] MEDS: FAMOTIDINE 20 MG TABLET PO ×2 (09:45→20:03)
[2022-09-28] MEDS: FLUTICASONE/UMECLIDIN/VILANTER 200-62.5-25 MCG ELLIPTA 1 PUFF INHALATION (11:13)
[2022-09-28] MEDS: ALBUTEROL SULFATE (*SP) AEROSOL 1 PUFF 2 PUFF INHALATION (11:17)
--- NOTE | 2022-09-28 18:36 | PM.IMPN ---
Progress Note: A&P Assessment and Plan (1) Community acquired pneumonia: Qualifiers: Laterality: right Lung location: lower lobe of lung Qualified Code(s): J18.9 - Pneumonia, unspecified organism Code(s): J18.9 - Pneumonia, unspecified organism Status: Acute Assessment and Plan: Patient presents with increasing shortness of breath and right-sided pleuritic chest pain. Chest x-ray shows patchy airspace disease in right lower lung. Could be early pneumonia. She is having pleuritic symptoms so consider PE. Would also consider early parapneumonic effusion or empyema. Blood cultures are no growth to date. Sputum culture is pending. Will check CTA of the chest to exclude PE and also to further evaluate the right lower lobe findings (she will need pre-treatment due to her allergy). Check urine antigens. Continue IV antibiotics. Continue nebulizer treatments. She is currently at her baseline oxygen requirement. Tessalon added. Add Mucinex as well. Continue supportive care. (2) Acute and chronic respiratory failure with hypoxia: Code(s): J96.21 - Acute and chronic respiratory failure with hypoxia Status: Acute Assessment and Plan: On admission, ABG showing 7.44/37/60 on 4 L. patient normally wears 3 L while awake and 4 L at sleep. Acute process related to the pneumonia. She may also have underlying COPD exacerbation although felt to be mild. She is back to her baseline oxygen requirement. Continue to follow closely. (3) COPD (chronic obstructive pulmonary disease): Qualifiers: COPD type: unspecified COPD Qualified Code(s): J44.9 - Chronic obstructive pulmonary disease, unspecified Code(s): J44.9 - Chronic obstructive pulmonary disease, unspecified Status: Acute Assessment and Plan: No wheezing appreciated on the ED providers exam. Assault that she had acute COPD exacerbation and steroids were started. Is also started on nebulizer treatments. Will continue nebulizer treatments. Will stop steroids at this time and follow clinically. If she is having wheezing, will give start oral prednisone for 5 day course. Resume Trelegy. (4) Gastric ulcer: Code(s): K25.9 - Gastric ulcer, unspecified as acute or chronic, without hemorrhage or perforation Status: Acute Assessment and Plan: Patient with a history of peptic ulcer disease. She is not on PPI or H2 blockers. Pepcid added. (5) Tobacco dependence: Code(s): F17.200 - Nicotine dependence, unspecified, uncomplicated Status: Acute Assessment and Plan: She was educated about the benefits of smoking cessation. Plan DVT prophylaxis - Lovenox Code status - full code Subjective Date/time seen: 09/28/22 18:36 Interval history: 67yo female with COPD and chronic respiratory failure (3L with 4L at sleep) here for shortness of breath. Patient also wears BiPAP at night. Patient has a cough productive white sputum. No hemoptysis. Eating normally. No odynophagia or dysphagia. She is having right lower pleuritic chest pain. No trauma or fall. She is compliant with her BiPAP at night. No leg edema. She does complain of left calf pain intermittently over the past 6-7 months that she describes as a muscle cramp. Exam Narrative: AF 97.3 112/70 81 20 97% 3L Gen - NARD Chest - bibasilar R>L inspiratory crackles o/w clear, distant BS. CV - RRR S1/S2. Tele showing 5 beat run of NSVT and possibly ATach Abd - Soft, NT/ND, Positive BS Ext - No pedal edema. 2+ DP pulses bilaterally. Negative Homans Psych - Nml mood and affect Skin - Warm and dry Objective Data Vital Signs Vital Signs: Vital Signs - 24 hr 09/27/22 19:17 09/27/22 19:34 09/27/22 19:35 Temperature 99.4 F Pulse Rate 102 H 101 H Respiratory Rate 93 H 25 H Blood Pressure 132/82 112/62 Pulse Oximetry 93 95 95 Oxygen Delivery Nasal Cannula Nasal Cannula Oxygen Carlito
[2022-09-28] MEDS: ASPIRIN 81 MG CHEWABLE TABLET PO (20:02)
[2022-09-28] MEDS: MONTELUKAST SODIUM 10 MG TABLET PO (20:02)
[2022-09-28] MEDS: guaiFENesin 12 HR 600 MG TABCR PO (20:02)
[2022-09-28] MEDS: ATORVASTATIN 40 MG TABLET PO (20:02)
[2022-09-28] MEDS: predniSONE 40 MG, predniSONE 10 MG 50 MG PO (20:05)
[2022-09-28] MEDS: AZITHROMYCIN 500 MG/NS 250 ML 500 MG/250 ML BAG 250 MG IVPB (20:38)
[2022-09-29] VITALS (19 sets, daily range): BP systolic 114–135; BP diastolic 72–88; PULSE 61–100; RESP 18–20; TEMP 36.6–36.8; O2SAT 96
[2022-09-29] MEDS: predniSONE 40 MG, predniSONE 10 MG 50 MG PO ×2 (01:57→08:02)
[2022-09-29] MEDS: IPRATROPIUM BR 0.02% INH SOLN 0.5 MG/2.5 ML VIAL INHALATION ×4 (02:33→19:44)
[2022-09-29] MEDS: LEVALBUTEROL NEB 1.25 MG/3 ML 0.63 MG INHALATION ×4 (02:33→19:45)
[2022-09-29] MEDS: FLUTICASONE/UMECLIDIN/VILANTER 200-62.5-25 MCG ELLIPTA 1 PUFF INHALATION (07:23)
[2022-09-29 07:31] LABS: Basophils Percent Auto 0.2 % (0.2-1.2); Hematocrit 36.4 % (37.0-47.0); Immature Granulocyte Percent A 0.9 % (0-0.5); Lymphocytes Absolute Auto 0.74 K/mm3 (0.9-3.2); Lymphocytes Percent Auto 6.4 % (18.3-44.2); Mean Corpuscular Hemoglobin 33.1 pg (26-34); Mean Corpuscular Volume 100.3 fl (80-100); Mean Platelet Volume 9.9 fl (7.4-10.4); Monocytes Absolute Auto 0.4 K/mm3 (0.1-0.6); Monocytes Percent Auto 3.6 % (2.6-8.5); Neutrophils Absolute Auto 10.3 K/mm3 (1.3-6.7); Neutrophils Percent Auto 88.9 % (45.5-73.1); Platelet Count Result 196 k/mm3 (150-375); Red Blood Count 3.63 M/mm3 (4.2-5.4); Red Cell Distribution Width 13.9 % (11.5-14.5); White Blood Count 11.6 K/mm3 (4.5-10.0)
[2022-09-29 07:41] LABS: Alanine Aminotransferase 29 U/L (6-35); Albumin Level 3.8 g/dL (3.5-5.1); Alkaline Phosphatase 59 U/L (38-126); Anion Gap 6 mmol/L (8-16); Aspartate Amino Transferase 23 U/L (14-36); Bilirubin,Total 0.8 mg/dL (0.2-1.3); Blood Urea Nitrogen 12 mg/dL (7-17); Calcium 8.8 mg/dL (8.4-10.2); Carbon Dioxide 25 mmol/L (22-30); Chloride 108 mmol/L (98-107); Estimated CRCL calculation 80 ml/min; Estimated Glomerular Filt Rate > 60; Glucose 154 mg/dL (65-110); Potassium 3.7 mmol/L (3.4-5.0); Sodium 139 mmol/L (137-145)
[2022-09-29] MEDS: diphenhydrAMINE HCl INJ 50 MG/ML VIAL IV PUSH (08:02)
[2022-09-29] MEDS: BENZONATATE 100 MG CAPSULE PO ×2 (09:26→17:04)
[2022-09-29] MEDS: ENOXAPARIN 40 MG/0.4 ML SYRINGE SUB-Q (09:26)
[2022-09-29] MEDS: FAMOTIDINE 20 MG TABLET PO ×2 (09:26→22:01)
[2022-09-29] MEDS: guaiFENesin 12 HR 600 MG TABCR PO ×2 (09:26→22:00)
--- NOTE | 2022-09-29 13:49 | PM.IMPN ---
Progress Note: A&P Assessment and Plan (1) Community acquired pneumonia: Qualifiers: Laterality: right Lung location: lower lobe of lung Qualified Code(s): J18.9 - Pneumonia, unspecified organism Code(s): J18.9 - Pneumonia, unspecified organism Status: Acute Assessment and Plan: Patient presents with increasing shortness of breath and right-sided pleuritic chest pain. Chest x-ray shows patchy airspace disease in right lower lung. She is having pleuritic symptoms so consider PE. Blood cultures are no growth to date. Sputum culture is pending. CTA of the chest was negative for PE but showed severe emphysema and probable bibasilar atelectasis. Concern for PNA but consider viral pleurisy. Urine antigens pending. Continue IV Rocephin and change to oral Azithro. Continue nebulizer treatments. She is currently at her baseline oxygen requirement. Continue Tessalon and Mucinex. Continue supportive care. Home tomorrow. Check RUQ US given the pain and may be causing diaphragmatic irritation. LFTs okay. Check Lipase. (2) Acute and chronic respiratory failure with hypoxia: Code(s): J96.21 - Acute and chronic respiratory failure with hypoxia Status: Acute Assessment and Plan: On admission, ABG showing 7.44/37/60 on 4 L. patient normally wears 3 L while awake and 4 L at sleep. Acute process related to the pneumonia. She may also have underlying COPD exacerbation although felt to be mild. She is back to her baseline oxygen requirement. Continue to follow closely. Add incentive spirometry (3) COPD (chronic obstructive pulmonary disease): Qualifiers: COPD type: unspecified COPD Qualified Code(s): J44.9 - Chronic obstructive pulmonary disease, unspecified Code(s): J44.9 - Chronic obstructive pulmonary disease, unspecified Status: Acute Assessment and Plan: No wheezing appreciated on the ED providers exam. Suspected that she had acute COPD exacerbation. Steroids and nebulizer treatments started. Steroids stopped after the pre-treatment for the contrast. Will continue nebulizer treatments. Continue Trelegy. Follow (4) Gastric ulcer: Code(s): K25.9 - Gastric ulcer, unspecified as acute or chronic, without hemorrhage or perforation Status: Acute Assessment and Plan: Patient with a history of peptic ulcer disease. She is not on PPI or H2 blockers. Pepcid added. (5) Tobacco dependence: Code(s): F17.200 - Nicotine dependence, unspecified, uncomplicated Status: Acute Assessment and Plan: She was educated about the benefits of smoking cessation. Plan DVT prophylaxis - Lovenox Code status - full code Subjective Date/time seen: 09/29/22 13:49 Interval history: 67yo female with COPD and chronic respiratory failure (3L with 4L at sleep) here for shortness of breath. Patient also wears BiPAP at night. Shortness of breath is better today. Her pleuritic right-sided chest pain also has improved today. She denies any abdominal pain. No nausea or vomiting. Exam Narrative: AF 97.9 135/88 75 20 96% 3L Gen - NARD Chest - bibasilar R>L inspiratory crackles o/w clear, distant BS. CV - RRR S1/S2. Tele showing no significant dysrhythmias Abd - Soft, ND, Positive BS, RUQ pain to palpation. Ext - No pedal edema Psych - Nml mood and affect Skin - Warm and dry Objective Data Vital Signs Vital Signs: Vital Signs - 24 hr 09/28/22 14:05 09/28/22 16:00 09/28/22 20:00 Temperature 97.3 F L 97.9 F Pulse Rate 86 81 82 Respiratory Rate 20 16 Blood Pressure 112/70 111/75 Pulse Oximetry 97 96 Oxygen Delivery Oxygen Flow Rate 09/28/22 20:59 09/28/22 21:00 09/28/22 21:14 Temperature Pulse Rate 86 89 Respiratory Rate 19 22 H Blood Pressure Pulse Oximetry 94 Oxygen Delivery Nasal Cannula Oxygen Flow Rate 3 09/28/22 20:00 09/29/22 00:00 09/28/22 22:40 Temperature
[2022-09-29 14:40] LABS: Lipase 34 U/L (23-300)
[2022-09-29] MEDS: MONTELUKAST SODIUM 10 MG TABLET PO (22:00)
[2022-09-29] MEDS: ASPIRIN 81 MG CHEWABLE TABLET PO (22:00)
[2022-09-29] MEDS: AZITHROMYCIN 250 MG TABLET PO (22:00)
[2022-09-29] MEDS: ATORVASTATIN 40 MG TABLET PO (22:00)
[2022-09-30] VITALS (10 sets, daily range): BP systolic 111–126; BP diastolic 71–73; PULSE 67–93; RESP 16–23; TEMP 36.5–36.6; O2SAT 95–99
[2022-09-30] MEDS: IPRATROPIUM BR 0.02% INH SOLN 0.5 MG/2.5 ML VIAL INHALATION ×3 (01:53→14:18)
[2022-09-30] MEDS: LEVALBUTEROL NEB 1.25 MG/3 ML 0.63 MG INHALATION ×3 (01:53→14:18)
[2022-09-30 06:58] LABS: Basophils Percent Auto 0.1 % (0.2-1.2); Eosinophils Percent Auto 0.2 % (0-4.4); Hematocrit 34.8 % (37.0-47.0); Hemoglobin 11.6 g/dL (12.0-15.0); Lymphocytes Absolute Auto 1.88 K/mm3 (0.9-3.2); Lymphocytes Percent Auto 19.7 % (18.3-44.2); Mean Corpuscular HGB Conc 33.3 g/dl (32-36); Mean Corpuscular Volume 99.1 fl (80-100); Mean Platelet Volume 10.1 fl (7.4-10.4); Monocytes Absolute Auto 0.4 K/mm3 (0.1-0.6); Monocytes Percent Auto 3.9 % (2.6-8.5); Neutrophils Absolute Auto 7.2 K/mm3 (1.3-6.7); Neutrophils Percent Auto 75.1 % (45.5-73.1); Platelet Count Result 209 k/mm3 (150-375); Red Blood Count 3.51 M/mm3 (4.2-5.4); Red Cell Distribution Width 14.1 % (11.5-14.5); White Blood Count 9.5 K/mm3 (4.5-10.0)
[2022-09-30 07:20] LABS: Alanine Aminotransferase 58 U/L (6-35); Albumin Level 3.5 g/dL (3.5-5.1); Alkaline Phosphatase 57 U/L (38-126); Anion Gap 3 mmol/L (8-16); Aspartate Amino Transferase 59 U/L (14-36); Bilirubin,Total 0.6 mg/dL (0.2-1.3); Blood Urea Nitrogen 13 mg/dL (7-17); Calcium 8.6 mg/dL (8.4-10.2); Carbon Dioxide 30 mmol/L (22-30); Chloride 106 mmol/L (98-107); Estimated CRCL calculation 68 ml/min; Estimated Glomerular Filt Rate > 60; Glucose 103 mg/dL (65-110); Potassium 3.1 mmol/L (3.4-5.0); Sodium 139 mmol/L (137-145)
[2022-09-30] MEDS: FLUTICASONE/UMECLIDIN/VILANTER 200-62.5-25 MCG ELLIPTA 1 PUFF INHALATION (07:49)
[2022-09-30] MEDS: FAMOTIDINE 20 MG TABLET PO (08:45)
[2022-09-30] MEDS: guaiFENesin 12 HR 600 MG TABCR PO (08:45)
[2022-09-30] MEDS: POTASSIUM CHLORIDE 20 MEQ TABLET 40 MEQ PO (08:45)
[2022-09-30] MEDS: ENOXAPARIN 40 MG/0.4 ML SYRINGE SUB-Q (08:45)
[2022-09-30] MEDS: BENZONATATE 100 MG CAPSULE PO ×2 (08:45→13:09)
[2022-09-30 09:44] LABS: Hepatitis B Surface Antigen Negative (Negative)
[2022-09-30 09:49] LABS: HAV RESULT Negative (Negative); Hepatitis B Core IgM Result Negative (Negative)
[2022-09-30 10:01] LABS: Hepatitis C Virus Antibody Negative (Negative)
--- NOTE | 2022-09-30 13:41 | PM.DS ---
DS: Admitting Diagnosis Discharge Date 09/30/22 Admitting Diagnosis Shortness of breath DS: Discharge Diagnosis Discharge Diagnosis (1) Community acquired pneumonia: Qualifiers: Laterality: right Lung location: lower lobe of lung Qualified Code(s): J18.9 - Pneumonia, unspecified organism Code(s): J18.9 - Pneumonia, unspecified organism Status: Acute (2) Acute and chronic respiratory failure with hypoxia: Code(s): J96.21 - Acute and chronic respiratory failure with hypoxia Status: Acute (3) COPD (chronic obstructive pulmonary disease): Qualifiers: COPD type: unspecified COPD Qualified Code(s): J44.9 - Chronic obstructive pulmonary disease, unspecified Code(s): J44.9 - Chronic obstructive pulmonary disease, unspecified Status: Acute (4) Gastric ulcer: Code(s): K25.9 - Gastric ulcer, unspecified as acute or chronic, without hemorrhage or perforation Status: Acute (5) Tobacco dependence: Code(s): F17.200 - Nicotine dependence, unspecified, uncomplicated Status: Acute DS: Summary Hospital Course Reason for hospitalization: 67yo female with COPD and chronic respiratory failure (3L with 4L at sleep) here for shortness of breath.? Patient also wears BiPAP at night. Please see H&P for details. Hospital Course: Patient presents with increasing shortness of breath and right-sided pleuritic chest pain.? Chest x-ray shows patchy airspace disease in right lower lung. She was having pleuritic symptoms.? Blood cultures are no growth to date.? Sputum culture growing streptococcus pneumoniae.? CTA of the chest was negative for PE but showed severe emphysema and probable bibasilar atelectasis. Concern for PNA but consider viral pleurisy. Urine antigens pending.? Treated with Rocephin, Azithromycin and nebulizer treatments.? LFTs mildly elevated possibly related to a viral etiology. RUQ US ordered given RUQ pain but was read as normal. Lipase normal. On admission, ABG showing 7.44/37/60 on 4 L. Patient normally wears 3 L while awake and 4 L at sleep.? She may also have underlying COPD exacerbation although felt to be mild; she was treated with steroids for a few days but not continued at discharge. She remained at her baseline oxygen requirement.?She was educated about the benefits of smoking cessation. Please see H&P for details. Status at Discharge Cognitive/behavioral status at discharge: stable Time Spent with Patient Time attestation: Total time spent providing and/or coordinating discharge services: 35 minutes Time spent: Greater than 30 minutes Exam Narrative: AF 97.8 111/71 93 16 99% 3L Gen - NARD Chest - bibasilar inspiratory crackles o/w clear, distant BS. CV - RRR S1/S2 Abd - Soft, ND, Positive BS. nontender today Ext - No pedal edema Psych - Nml mood and affect Skin - Warm and dry DS: Data Data Completed and Pending Labs on day of discharge: Labs from last 24 hours 09/30/22 09/30/22 09/29/22 06:35 06:28 07:12 WBC 9.5 RBC 3.51 L Hgb 11.6 L Hct 34.8 L MCV 99.1 MCH 33.0 MCHC 33.3 RDW 14.1 Plt Count 209 MPV 10.1 Immature Gran % (Auto) 1.0 H Neut % (Auto) 75.1 H Lymph % (Auto) 19.7 [place] % (Auto) 3.9 Eos % (Auto) 0.2 Baso % (Auto) 0.1 L Lymph # (Auto) 1.88 [place] # (Auto) 0.4 Eos # (Auto) 0.0 Baso # (Auto) 0.0 Abs Immat Gran (auto) 0.10 H Absolute Neuts (auto) 7.2 H Absolute Nucleated RBC 0.0 Nucleated RBC % 0.0 Sodium 139 Potassium 3.1 L Chloride 106 Carbon Dioxide 30 Anion Gap 3 L BUN 13 Creatinine 0.60 L Estim Creat Clear Calc 68 Estimated GFR > 60 Glucose 103 Calcium 8.6 Total Bilirubin 0.6 AST 59 H ALT 58 H Alkaline Phosphatase 57 Total Protein 7.0 Albumin 3.5 Lipase 34 Hepatitis A IgM Ab Negative Hep Bs Antigen Negative Hep B Core IgM Ab Nega
[2022-10-02 22:04] LABS: Pneumococcal Antigen Urine Detected (Not Detected)
[2022-10-04 23:47] LABS: Legionella pneumophila Ag Ur Not Detected (Not Detected)
== END 2022-09-30 15:48 | disposition home or self-care (01) ==
LOC: ANHED 21:08 → ANH3MED 09-28 05:38
PROVIDERS: Admitting Provider Internal Medicine; Emergency Provider Emergency Medicine; PCP Nurse Practitioner Family; Visit Provider Internal Medicine
DX: J18.9 Pneumonia, unspecified organism (principal); J96.21 Acute and chronic respiratory failure with hypoxia; J44.1 Chronic obstructive pulmonary disease with (acute) exacerbation; K25.9 Gastric ulcer, unspecified as acute or chronic, without hemorrhage or perforation; Z99.81 Dependence on supplemental oxygen; M81.0 Age-related osteoporosis without current pathological fracture; R00.0 Tachycardia, unspecified; R10.11 Right upper quadrant pain; D72.829 Elevated white blood cell count, unspecified; F10.90 Alcohol use, unspecified, uncomplicated; F17.210 Nicotine dependence, cigarettes, uncomplicated; Z79.51 Long term (current) use of inhaled steroids; Z79.52 Long term (current) use of systemic steroids; Z79.899 Other long term (current) drug therapy
CPT/HCPCS: 36415; 36600; 71045; 71275; 76705; 80053; 80074; 82140; 82805; 83605; 83690; 83735; 83880; 84484; 85025; 85380; 85610; 85730; 86140; 87040; 87070; 87147; 87181; 87186; 87205; 87449; 87899; 93005; 94640; 96361; 96365; 96366; 96372; 96375; 96376; 99291; A9270; G0378; J0456; J0696; J1200; J1650; J2930; J7030; J7512; Q9967

== ENCOUNTER 2022-12-20 07:46 | Outpatient (CLI) | payer MEDICARE, MEDICAID, SELFPAY ==
[2022-12-20] VITALS (8 sets, daily range): PULSE 82–107; O2SAT 84–91
--- NOTE | 2022-12-20 09:07 | HOMEO2EVAL ---
Evaluation was performed at [facility] Home Oxygen Evaluation RC: Home Oxygen (O2) Evaluation Start: 12/20/22 08:57 Freq: Status: Active Protocol: RPE Activity Type Activity Date Activity User E-sign Co-sign Detail Recorded Client Recorded Date Recorded By Document 12/20/22 08:15 [email or web address] [email or web address] 12/20/22 09:07 DJO Document 12/20/22 08:20 [email or web address] [email or web address] 12/20/22 09:07 DJO Document 12/20/22 08:25 [email or web address] [email or web address] 12/20/22 09:07 DJO Document 12/20/22 08:30 [email or web address] [email or web address] 12/20/22 09:07 DJO Document 12/20/22 08:35 [email or web address] [email or web address] 12/20/22 09:07 DJO Document 12/20/22 08:40 [email or web address] [email or web address] 12/20/22 09:07 DJO Document 12/20/22 08:45 [email or web address] [email or web address] 12/20/22 09:07 DJO Document 12/20/22 09:00 [email or web address] [email or web address] 12/20/22 09:07 DJO 12/20/22 12/20/22 12/20/22 08:15 08:20 08:25 Home O2 Evaluation [Oxygen] -Test Phase Resting Resting Resting -Oxygen Delivery Room Air Nasal Cannula Nasal Cannula -Oxygen Flow Rate (L/min) 1 2 [Pulse Oximetry] -Pulse Oximetry (90-100 %) 86 L 88 L 91 [Pulse Rate] -Pulse Rate (60-100 beats/min) 85 84 82 [Evaluation] -Activity Tolerance [Comments] -Home Oxygen Evaluation Comments [Charges] -Treatment Charges O2 Evaluation - Outpatient 12/20/22 12/20/22 12/20/22 08:30 08:35 08:40 Home O2 Evaluation [Oxygen] -Test Phase Exercise Exercise Exercise -Oxygen Delivery Nasal Cannula Nasal Cannula Nasal Cannula -Oxygen Flow Rate (L/min) 2 3 4 [Pulse Oximetry] -Pulse Oximetry (90-100 %) 84 L 87 L 88 L [Pulse Rate] -Pulse Rate (60-100 beats/min) 105 H 105 H 107 H [Evaluation] -Activity Tolerance [Comments] -Home Oxygen Evaluation Comments [Charges] -Treatment Charges 12/20/22 12/20/22 08:45 09:00 Home O2 Evaluation [Oxygen] -Test Phase Exercise Resting -Oxygen Delivery Nasal Cannula Nasal Cannula -Oxygen Flow Rate (L/min) 5 2 [Pulse Oximetry] -Pulse Oximetry (90-100 %) 91 91 [Pulse Rate] -Pulse Rate (60-100 beats/min) 105 H 83 [Evaluation] -Activity Tolerance Good [Comments] -Home Oxygen Evaluation Comments TESTING DONE ON CONTINUOUS FLOW [Charges] -Treatment Charges
--- NOTE | 2022-12-20 09:14 | PCRCNOTE ---
PT CAME IN FOR A PRE REHAB 6 MINUTE WALK, PT'S SAO2 DROPPED TO 79% ON HER HOME SETTING OF 4L PULSE DOSE. SPOKE TO VIDYA AT DR. JIMENES'S OFFICE AND A HOME O2 EVAL WAS DONE INSTEAD. PT DID MUCH BETTER ON CONTINUOUS FLOW.
== END 2022-12-20 07:47 | disposition home or self-care (01) ==
LOC: ANHPFT 07:48
PROVIDERS: PCP Nurse Practitioner Family; Visit Provider Internal Medicine Pulmonary Disease
DX: J44.9 Chronic obstructive pulmonary disease, unspecified (principal)
CPT/HCPCS: 94618

== ENCOUNTER 2023-01-27 21:15 | Emergency (ER) | payer MEDICARE, MEDICAID, SELFPAY ==
[2023-01-27] VITALS (8 sets, daily range): BP systolic 109–113; BP diastolic 70–72; PULSE 107–118; RESP 30–38; TEMP 37.5–38.3; O2SAT 91–97
--- NOTE | ~2023-01-27 | XR_ITS ---
XR chest 2V 01/28/2023 00:10 Indication: Shortness of breath and cough Procedure: 2 view chest Comparison: Comparison to multiple prior studies sequentially, with oldest reviewed study dated 10/21. Findings: No focal air space disease, pulmonary edema, pleural effusion or suspected pneumothorax. Th e lungs are hyperinflated which is consistent with, but not diagnostic of chronic obstructive pulmona ry disease. Heart size normal. No acute osseous abnormality. Impression: 1: No acute cardiopulmonary disease. Reviewed, dictated and finalized at location A. Impression: 1: No acute cardiopulmonary disease.
--- NOTE | 2023-01-27 21:26 | ECG_ITS ---
Measurements Intervals [place] Rate: 111 P: 74 MO: 139 QRS: 59 QRSD: 86 T: 72 QT: 313 QTc: 427 Interpretive Statements SINUS TACHYCARDIA DELAYED PRECORDIAL R/S TRANSITION BASELINE WANDER- AVL, V4-V6 ABNORMAL ECG COMPARED TO ECG 09/27/2022 19:23:03 NO SIGNIFICANT CHANGES Electronically Signed On 01-28-2023 7:01:28 CDT by Azeem Lang D.O.
--- NOTE | 2023-01-27 21:27 | ED.SOB ---
HPI - SOB/Dyspnea General Chief Complaint: Shortness of Breath/Dyspnea Stated Complaint: sob, cp Time Seen by Provider: 01/27/23 21:20 History of Present Illness HPI Narrative: Patient is a 67-year-old female with a history of COPD on 5 L baseline, hyperlipidemia presenting with shortness of breath. States that she has been feeling increasingly short of breath over the last few days despite using her inhaler. States that she has had a productive cough. Her chest feels tight and she has pain when she coughs. Her symptoms have not improved so she came in for evaluation. Denies further complaints. Related Data Home Medications Medication Instructions Recorded Confirmed albuterol sulfate 90 mcg/actuation 2 puff inhalation QID PRN 10/22/19 09/27/22 aerosol inhaler Shortness Of Breath aspirin 81 mg tablet 81 mg PO HS 09/27/22 09/27/22 atorvastatin 40 mg tablet 40 mg PO HS 09/27/22 09/27/22 fluticasone fur. 200 mcg-umeclid 1 inh inhalation DAILY 09/27/22 09/27/22 62.5 mcg-vilant 25 mcg inhalat.powder (Trelegy Ellipta) fluticasone propionate 50 50 mcg intranasal PRN 09/27/22 09/27/22 mcg/actuation nasal spray,suspension montelukast 10 mg tablet 10 mg PO HS 09/27/22 09/27/22 Allergies Allergy/AdvReac Type Severity Reaction Status Date / Time Contrast Media Allergy Unknown RASH TO CT Uncoded 01/27/23 21:27 SCAN DYE UNKNOWN ANTIBIOTIC Allergy Unknown Uncoded 09/27/22 19:25 Review of Systems Review of Systems: All systems reviewed & are unremarkable except as noted in HPI and below PMFSH Past Medical History Medical History COPD (chronic obstructive pulmonary disease) Gastric ulcer Osteoporosis Surgical History Surgical History History of appendectomy Open procedure due to ruptured appendix April 2012 History of carpal tunnel surgery of right wrist History of oophorectomy, unilateral Right oophorectomy due to dermoid cyst performed at the same time as the patient's open appendectomy April 2012 Previous section Family History Family History Father Diabetes mellitus Cancer Mother Diabetes mellitus Heart disease Breast cancer Legally blind Sibling Legally blind Diabetes mellitus Sibling Diabetes mellitus Social History Social History Social History: The patient has smoked up to 3 packs of cigarettes per day for 55 years. She started smoking when she was 9 years old. She has cut down to 1 pack of cigarettes per day for the last 1.5 years. She rarely drinks alcohol and only in moderation. She denies any illicit substance use. 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 She lives with her daughter and her daughter's boyfriend. Code status: Full code Smoking packs per day: 0.5 Smoking cigarettes per day: 10.0 Years smoked: 58 Smoking pack-years: 29.00 Smoking status: Current every day smoker Tobacco type: cigarettes Alcohol intake: former Substance use: never Lack of Transportation: No Lack of Food: Never True Current Housing: I Have Housing Concerned About Future Housing: No Difficulty Paying Gas/Electric Bills: No Difficulty Paying for Meds: No Currently Unemployed: No Education: High School Diploma/GED Difficulty w/ Childcare or Family Care: No Gender identity (if verbalized by the patient): Female Spiritual care concerns: No Exam Narrative: GENERAL: Ill-appearing, moderate respiratory distress HEAD: Normocephalic, atraumatic. EYES: PERRLA and EOMI. ENT: Nares clear, no rhinorrhea or epistaxis. Mucous membranes moist. NECK: Supple. CHEST: Very diminished breath sounds bilaterally HEART: Tachycardic, regular rhythm ABDOMEN: Soft, nontender, nondistended EXTREMITIES: Normal range of mot
[2023-01-27] MEDS: IPRATROPIUM BR 0.02% INH SOLN 0.5 MG/2.5 ML VIAL INHALATION (21:40)
[2023-01-27] MEDS: ALBUTEROL SULFATE NEB 2.5 MG/3 ML INH 10 MG INHALATION (21:40)
[2023-01-27] MEDS: SODIUM CHLORIDE 0.9% IV 1,000 ML 999 ML IV CONT ×2 (21:47→21:48)
[2023-01-27] MEDS: methylPREDNISolone SOD SUCC 125 MG VIAL IV PUSH (21:47)
[2023-01-27] MEDS: cefTRIAXone 2 GM/NS 100 ML 2 GM/100 ML BAG IVPB (21:48)
[2023-01-27 21:56] LABS: Basophils Percent Auto 0.3 % (0.2-1.2); Eosinophils Absolute Auto 0.1 K/mm3 (0-0.3); Hemoglobin 12.9 g/dL (12.0-15.0); Immature Granulocyte Absolute 0.02 K/mm3 (0.00-0.031); Immature Granulocyte Percent A 0.2 % (0-0.5); Lymphocytes Absolute Auto 1.53 K/mm3 (0.9-3.2); Lymphocytes Percent Auto 17.6 % (18.3-44.2); Mean Corpuscular HGB Conc 32.3 g/dl (32-36); Mean Corpuscular Hemoglobin 32.9 pg (26-34); Mean Platelet Volume 10.2 fl (7.4-10.4); Monocytes Absolute Auto 0.5 K/mm3 (0.1-0.6); Monocytes Percent Auto 5.5 % (2.6-8.5); Neutrophils Absolute Auto 6.6 K/mm3 (1.3-6.7); Neutrophils Percent Auto 75.4 % (45.5-73.1); Platelet Count Result 199 k/mm3 (150-375); Red Blood Count 3.92 M/mm3 (4.2-5.4); Red Cell Distribution Width 13.2 % (11.5-14.5); White Blood Count 8.7 K/mm3 (4.5-10.0)
[2023-01-27 22:09] LABS: Prothrombin Time 13.1 Seconds (11.1-14.7)
[2023-01-27 22:10] LABS: Alanine Aminotransferase 24 U/L (6-35); Albumin Level 4.4 g/dL (3.5-5.1); Alkaline Phosphatase 95 U/L (38-126); Anion Gap 7 mmol/L (8-16); Aspartate Amino Transferase 26 U/L (14-36); Bilirubin,Total 1.3 mg/dL (0.2-1.3); Blood Urea Nitrogen 11 mg/dL (7-17); Calcium 8.8 mg/dL (8.4-10.2); Carbon Dioxide 23 mmol/L (22-30); Chloride 104 mmol/L (98-107); Estimated CRCL calculation 68 ml/min; Estimated Glomerular Filt Rate > 60; Glucose 125 mg/dL (65-110); Lactic Acid Reflex 0.9 mmol/L (0.7-2.0); Potassium 3.6 mmol/L (3.4-5.0); Sodium 134 mmol/L (137-145)
[2023-01-27 22:21] LABS: Troponin I < 0.012 ng/mL (0.000-0.034)
[2023-01-27 22:32] LABS: Influenza A QL RT-PCR Negative (Negative); Influenza B QL RT-PCR Negative (Negative); RSV RNA, RT-PCR Negative (Negative); SARS-CoV-2 RNA PCR Negative (Negative)
[2023-01-27] MEDS: AZITHROMYCIN 500 MG/NS 250 ML 500 MG/250 ML BAG 250 MG IVPB (22:33)
[2023-01-28 00:21] LABS: Appearance Urine Clear (Clear); Bilirubin Urine Negative (Negative); Blood Urine Negative (Negative); Color Urine Yellow (Yellow); Glucose Urine UA Negative (Negative); Ketones Urine Negative (Negative); Leukocyte Esterase Ur Negative LEU/UL (Negative); Nitrate Urine Negative (Negative); Protein Urine Negative (Negative); Specific Grav Ur 1.012 (1.001-1.035)
[2023-01-28 00:38] LABS: Add Urine Microscopic? NO
[2023-01-28] MEDS: ALBUTEROL SULFATE NEB 2.5 MG/3 ML INH 10 MG INHALATION (01:04)
[2023-01-28 01:05] VITALS: PULSE 97; RESP 28
[2023-01-28] MEDS: IPRATROPIUM BR 0.02% INH SOLN 0.5 MG/2.5 ML VIAL INHALATION (01:05)
[2023-01-28 01:39] VITALS: BP 109/68; PULSE 104; RESP 18; O2SAT 97
[2023-01-28 02:05] VITALS: PULSE 102; RESP 26
[2023-01-28 02:13] LABS: Troponin I < 0.012 ng/mL (0.000-0.034)
[2023-01-28 02:45] VITALS: BP 102/68; PULSE 102; O2SAT 98
[2023-01-28 02:57] VITALS: O2SAT 98
== END 2023-01-28 02:56 | disposition home or self-care (01) ==
PROVIDERS: Emergency Provider Emergency Medicine; PCP Nurse Practitioner Family
DX: J44.1 Chronic obstructive pulmonary disease with (acute) exacerbation (principal); J18.9 Pneumonia, unspecified organism; Z20.822 Contact with and (suspected) exposure to COVID-19; M81.0 Age-related osteoporosis without current pathological fracture; F17.210 Nicotine dependence, cigarettes, uncomplicated; Z90.721 Acquired absence of ovaries, unilateral; Z79.82 Long term (current) use of aspirin
CPT/HCPCS: 36415; 71046; 80053; 81003; 83605; 84484; 85025; 85610; 85730; 87040; 87637; 93005; 94640; 96361; 96365; 96367; 96375; 99284; J0456; J0696; J2930; J7030

== ENCOUNTER 2023-08-27 12:47 | Outpatient (CLI) | payer MEDICARE, SELFPAY ==
--- NOTE | ~2023-08-27 | MM_ITS ---
EXAMINATION: MM screening jennifer BI w melvin HISTORY: Screening mammogram TECHNIQUE: Craniocaudal and mediolateral oblique 3-D tomosynthesis images were obtained and synthetic 2-D images were generated. CAD analysis was submitted and interpreted. COMPARISON: No prior mammogram is available for comparison at this institution. BREAST PARENCHYMAL COMPOSITION: There are scattered areas of fibroglandular density. FINDINGS: There is a circumscribed approximately 5 mm opacity in the lower outer left breast near the junction of the anterior middle thirds. Diagnostic left mammogram and left breast ultrasound examina tion are recommended. No suspicious mass or architectural distortion, malignant calcification, skin thickening or retractio n of either breast is noted otherwise. There is no evidence of suspicious mass, calcification, or arc hitectural distortion to suggest malignancy in either breast. There has been no suspicious interval c hange. IMPRESSION: 1. 5 mm lower outer quadrant left breast mass 2. Diagnostic left mammogram and left targeted breast ultrasound examination are recommended BI-RADS Category 0: Incomplete: Needs additional imaging evaluation. Reviewed, dictated and finalized at location A. IMPRESSION: 1. 5 mm lower outer quadrant left breast mass 2. Diagnostic left mammogram and left targeted breast ultrasound examination ar jayda recommended BI-RADS Category 0: Incomplete: Needs additional imaging evaluation.
--- NOTE | ~2023-08-27 | DEXA_ITS ---
Bone Density Report Name: CAREN JACKSON Age: 68 Sex: Female Ethnicity: White Date of : 1955 Indication: postmenopausal; screening for osteoporosis; height loss; asthma or emphysema; Referring Provider: LUCIA, VIDYA Study: Bone densitometry was performed. Exam Date: August 27, 2023 Accession number: [id number] Bone Density: Region BMD T-score Z-score Classification AP Spine (L1-L4) 0.860 -1.7 0.2 Osteopenia Femoral Neck (Left) 0.611 -2.1 -0.5 Osteopenia Total Hip (Left) 0.670 -2.2 -0.9 Osteopenia Femoral Neck (Right) 0.613 -2.1 -0.5 Osteopenia Total Hip (Right) 0.638 -2.5 -1.1 Osteoporosis Total Hip Mean 0.654 -2.4 -1.0 Osteopenia World Health Organization criteria for BMD impression classify patients as: Normal (T-score at or above -1.0), Osteopenia (T-score between -1.0 and -2.5), or Osteoporosis (T-score at or below -2.5). 10-year Fracture Risk: FRAX not reported because: Some T-score for Spine Total or Hip Total or Femoral Neck at or below -2.5 Clinical Information Provided by Patient: Smokes Has used the following medications: Vitamin D Has the following medical conditions: Asthma or Emphysema, ? hysterectomy Patient maximum height was 66 Menopause Age: 50 Does not regularly consume dairy products Drinks caffeinated beverages Onset of menses at age 13 Number of children 2 Impression: The patient has osteoporosis, based on the Right Total Hip T-score. The patient has risk factors, including: smoking. Discussion: INCREASED RISK OF FRACTURE. BONE DENSITY IS UNDESIRABLY LOW AT ONE OR MORE SKELETAL SITES, CONSISTENT WITH POSTMENOPAUSAL OSTEOPOROSIS. This patient's lowest T-score meets the World Health Organization's (WHO) criteria for osteoporosis at one or more sites (T-score -2.5 or below). In untreated patients, the risk of osteoporotic fracture increases approximately two-fold for each 1.0 SD decrease in T-score. Low bone density is not the only risk factor for fracture; also consider factors such as patient's age, frailty or poor health, risk of falling, risk of injury, previous osteoporotic fracture, family history of osteoporosis, cigarette smoking, low body weight, etc. Not everyone with low bone mineral density has osteoporosis; osteomalacia and other metabolic bone disorders should also be considered. Patients who have osteoporosis should be evaluated for specific diseases and conditions (secondary causes) that may cause or contribute to bone loss. The [place] [employer]ocrin[employer] (AACE) and National Osteoporosis Foundation (NOF) recommend pharmacologic intervention for all postmenopausal women whose T-score is in this range. The patient should follow a healthful lifestyle (good nutrition with adequate calcium and vitamin D, and appropriate weight-bearing exercise
== END 2023-08-27 12:48 ==
PROVIDERS: PCP Nurse Practitioner Family; Visit Provider Nurse Practitioner Family
DX: Z12.31 Encounter for screening mammogram for malignant neoplasm of breast (principal); N63.23 Unspecified lump in the left breast, lower outer quadrant; R92.8 Other abnormal and inconclusive findings on diagnostic imaging of breast; M81.0 Age-related osteoporosis without current pathological fracture; M85.89 Other specified disorders of bone density and structure, multiple sites; Z78.0 Asymptomatic menopausal state
CPT/HCPCS: 77063; 77067; 77080

== ENCOUNTER 2023-10-02 09:15 | Outpatient (CLI) | payer MEDICARE, SELFPAY ==
--- NOTE | ~2023-10-02 | MMUS_ITS ---
EXAMINATION: MM diagnostic jennifer LT w melvin, US breast LT limited HISTORY: Follow-up left breast asymmetry TECHNIQUE: Additional 3-D tomosynthesis images of the left breast were performed and synthetic 2-D im ages were generated. CAD analysis was submitted and interpreted. High resolution Limited left breast ultrasound was performed. COMPARISON: Comparison to multiple prior studies sequentially, with oldest reviewed study dated 02/06. BREAST PARENCHYMAL COMPOSITION: Not dense: There are scattered areas of fibroglandular density. FINDINGS: MAMMOGRAPHIC FINDINGS: There is a persistent mass in the lower outer quadrant of the left breast, middle third. There are no suspicious calcifications or architectural distortion. ULTRASOUND: Limited left breast ultrasound: At 4:00, 5 cm from the nipple, there is a cluster of cysts, largest m easuring 6 mm, corresponding to the mammographic finding. There is an adjacent oval hypoechoic 5 mm m ass with parallel orientation, no posterior features and no significant internal vascularity. There i s a small calcification at 6:00, 5 cm from the nipple. IMPRESSION: 1. Probable benign findings of the left breast. 2. Recommend 6 month follow-up diagnostic left mammogram and ultrasound. BI-RADS category 3, probably benign findings. Reviewed, dictated and finalized at location B. IMPRESSION: 1. Probable benign findings of the left breast. 2. Recommend 6 month follow-up diagnostic left mammogram and ultrasound. BI-RADS category 3, probably benign findings.
== END 2023-10-02 09:16 ==
LOC: MICIMG 09:16
PROVIDERS: PCP Nurse Practitioner Family; Visit Provider Nurse Practitioner Family
DX: R92.8 Other abnormal and inconclusive findings on diagnostic imaging of breast (principal)
CPT/HCPCS: 76642; 77061; 77065; G0279